=== PATIENT | female | born 1965 | race Caucasian/White ===

== ENCOUNTER 2019-08-03 16:45 | Outpatient (RCR) | payer BC, SELFPAY ==
[2019-07-25 16:57] LABS: INR 1.1
[2019-08-03 17:31] LABS: INR 2.3; Prothrombin Time 24.9 Seconds (11.1-14.7)
== END 2019-10-23 23:59 | disposition home or self-care (01) ==
LOC: ANHLAB 16:45
PROVIDERS: PCP Family Medicine; Visit Provider Internal Medicine Cardiovascular Disease
DX: I05.9 Rheumatic mitral valve disease, unspecified (principal); Z95.2 Presence of prosthetic heart valve
CPT/HCPCS: 36415; 85610

== ENCOUNTER 2020-02-17 15:49 | Outpatient (RCR) | payer BC, SELFPAY ==
[2020-01-04 16:44] LABS: INR 3.3; Prothrombin Time 32.6 Seconds (11.1-14.7)
[2020-02-17 16:26] LABS: INR 3.3; Prothrombin Time 32.7 Seconds (11.1-14.7)
== END 2020-04-03 23:59 | disposition home or self-care (01) ==
LOC: ANHLAB 15:49
PROVIDERS: PCP Family Medicine; Visit Provider Internal Medicine Cardiovascular Disease
DX: I05.9 Rheumatic mitral valve disease, unspecified (principal); Z95.2 Presence of prosthetic heart valve
CPT/HCPCS: 36415; 85610

== ENCOUNTER 2020-07-23 11:45 | Outpatient (RCR) | payer SELFPAY ==
[2020-05-23 09:08] LABS: INR 2.7; Prothrombin Time 27.8 Seconds (11.1-14.7)
[2020-07-23 12:30] LABS: INR 2.6; Prothrombin Time 28.5 Seconds (11.1-14.7)
== END 2020-08-21 23:59 | disposition home or self-care (01) ==
LOC: ANHLAB 11:45
PROVIDERS: PCP Family Medicine; Visit Provider Internal Medicine Cardiovascular Disease
DX: I05.9 Rheumatic mitral valve disease, unspecified (principal); Z95.2 Presence of prosthetic heart valve
CPT/HCPCS: 36415; 85610

== ENCOUNTER 2020-10-18 17:10 | Outpatient (CLI) | payer BC, SELFPAY ==
[2020-10-18 17:33] LABS: Basophils Percent Auto 0.3 % (0.2-1.2); Eosinophils Absolute Auto 0.1 K/mm3 (0-0.3); Eosinophils Percent Auto 2.1 % (0-4.4); Hematocrit 42.5 % (37.0-47.0); Hemoglobin 14.2 g/dL (12.0-15.0); Immature Granulocyte Absolute 0.02 K/mm3 (0.00-0.031); Immature Granulocyte Percent A 0.3 % (0-0.5); Lymphocytes Absolute Auto 1.77 K/mm3 (0.9-3.2); Lymphocytes Percent Auto 28.5 % (18.3-44.2); Mean Corpuscular HGB Conc 33.4 g/dl (32-36); Mean Corpuscular Hemoglobin 32.8 pg (26-34); Mean Corpuscular Volume 98.2 fl (80-100); Mean Platelet Volume 10.6 fl (7.4-10.4); Monocytes Absolute Auto 0.5 K/mm3 (0.1-0.6); Monocytes Percent Auto 7.6 % (2.6-8.5); Neutrophils Absolute Auto 3.8 K/mm3 (1.3-6.7); Neutrophils Percent Auto 61.2 % (45.5-73.1); Platelet Count Result 315 k/mm3 (150-375); Red Blood Count 4.33 M/mm3 (4.2-5.4); Red Cell Distribution Width 14.2 % (11.5-14.5); White Blood Count 6.2 K/mm3 (4.5-10.0)
[2020-10-18 17:45] LABS: Alanine Aminotransferase 41 U/L (4-35); Albumin Level 4.6 g/dL (3.5-5.1); Alkaline Phosphatase 53 U/L (38-126); Anion Gap 7 mmol/L (8-16); Aspartate Amino Transferase 47 U/L (14-36); Bilirubin,Total 1.5 mg/dL (0.2-1.3); Blood Urea Nitrogen 14 mg/dL (7-17); Calcium 9.4 mg/dL (8.4-10.2); Carbon Dioxide 30 mmol/L (22-30); Chloride 101 mmol/L (98-107); Cholesterol 261 mg/dL (0-200); Estimated Glomerular Filt Rate > 60; Glucose 95 mg/dL (65-105); HDL Direct 67 mg/dL; Sodium 138 mmol/L (137-145); Triglycerides 73 mg/dL (<150)
[2020-10-18 17:48] LABS: Hemoglobin A1C 5.3 % (<5.7)
[2020-10-18 17:56] LABS: LDL Cholesterol Direct 136 mg/dL
[2020-10-22 12:35] LABS: Vitamin D 1,25 (OH)2 Total 44 pg/mL (18-72); Vitamin D2 1,25 (OH)2 <8 pg/mL; Vitamin D3 1,25 (OH)2 44 pg/mL
== END 2020-10-18 17:11 | disposition home or self-care (01) ==
LOC: ANHLAB 17:12
PROVIDERS: PCP Family Medicine; Visit Provider Family Medicine
DX: R73.01 Impaired fasting glucose (principal); I10 Essential (primary) hypertension; E78.2 Mixed hyperlipidemia; R53.83 Other fatigue; E55.9 Vitamin D deficiency, unspecified
CPT/HCPCS: 36415; 80053; 80061; 82652; 83036; 84443; 85025

== ENCOUNTER 2020-11-28 15:18 | Outpatient (RCR) | payer BC, SELFPAY ==
[2020-09-10 12:12] LABS: INR 1.8; Prothrombin Time 21.3 Seconds (11.1-14.7)
[2020-09-18 14:50] LABS: INR 2.4; Prothrombin Time 26.4 Seconds (11.1-14.7)
[2020-10-18 17:41] LABS: Prothrombin Time 23.5 Seconds (11.1-14.7)
[2020-11-28 15:42] LABS: INR 2.5; Prothrombin Time 27.9 Seconds (11.1-14.7)
== END 2020-12-09 23:59 | disposition home or self-care (01) ==
LOC: ANHLAB 15:18
PROVIDERS: PCP Family Medicine; Visit Provider Internal Medicine Cardiovascular Disease
DX: Z51.81 Encounter for therapeutic drug level monitoring (principal); Z95.2 Presence of prosthetic heart valve; Z79.01 Long term (current) use of anticoagulants
CPT/HCPCS: 36415; 85610

== ENCOUNTER → 2020-11-30 17:19 | Outpatient (CLI) | payer BC, SELFPAY ==
--- NOTE | ~2020-11-30 | MM_ITS ---
EXAMINATION: MM screening flavia BI w betty HISTORY: Screening mammogram TECHNIQUE: Craniocaudal and mediolateral oblique 3-D tomosynthesis images were obtained and synthetic 2-D images were generated. CAD analysis was submitted and interpreted. COMPARISON: No prior mammogram is available for comparison at this institution. BREAST PARENCHYMAL COMPOSITION: The breasts are heterogeneously dense, which may obscure small masses . FINDINGS: Scattered bilateral benign calcifications are noted. Several 3 mm up to 13 mm masses are noted in the right breast, the largest having halo sign suggestin g benign process. Diagnostic right mammogram and right breast ultrasound examination are recommended. Circumscribed approximately 4 mm up to 11 with a lobulated masses are suggested on the left as well. Diagnostic left mammogram and left breast ultrasound examination are recommended.. IMPRESSION: 1. Bilateral breast masses 2. Bilateral diagnostic mammography and bilateral breast ultrasound examination are recommended. BI-RADS Category 0: Incomplete: Needs additional imaging evaluation. Reviewed, dictated and finalized at location A.
== END ==
PROVIDERS: PCP Family Medicine; Visit Provider Family Medicine
DX: Z12.31 Encounter for screening mammogram for malignant neoplasm of breast (principal); R92.8 Other abnormal and inconclusive findings on diagnostic imaging of breast
CPT/HCPCS: 77063; 77067

== ENCOUNTER → 2020-12-19 10:51 | Outpatient (CLI) | payer BC, SELFPAY ==
--- NOTE | ~2020-12-19 | CT_ITS ---
EXAMINATION: CT diagnostic chest wo con DATE: 12/19/2020 11:29 INDICATION: solitary pulmonary nodule TECHNIQUE: Computed tomography (CT) of the chest was performed without intravenous contrast. Addition al 3D reconstructions utilizing coronal maximum intensity projection (MIP) were performed. Automated exposure control and iterative reconstruction technique were employed. The dose-length product was 14 3.88 mGy-cm. COMPARISON: 05/13/2019 FINDINGS: Again seen are several scattered 4 mm or smaller bilateral pulmonary nodules, a couple of which are n ew since the prior study although a couple of the nodule on the prior study have since resolved. Unch anged curvilinear bands of peripheral atelectasis/scarring with architectural distortion in the lingu la, right middle and bilateral lower lung zones. No pneumonia, pulmonary edema or pleural effusion. H eart size is normal. Postoperative change of prior median sternotomy and mitral valve repair. No bernadette cardial effusion. Thoracic aorta is normal in caliber with no dissection. No pathologically enlarged abdominal or pelvic lymphadenopathy. Small fat-containing infra xiphoid ventral hernia. Visualized up per abdomen is unremarkable. Mild thoracic spondylosis. IMPRESSION: 1. A few 4 mm or smaller scattered bilateral pulmonary nodules couple of which appear new, likely seq uela of old granulomatous disease. If the patient is low risk for lung cancer, no follow-up is needed . If the patient is high risk (i.e., history of smoking or asbestos or significant radiation exposure ), optional follow-up chest CT could be considered at 12 months. Reviewed, dictated and finalized at location A. IMPRESSION: 1. A few 4 mm or smaller scattered bilateral pulmonary nodules couple of which appear new, likely sequela of old granulomatous disease. If the patient is low risk for lung cancer, no follow-up is needed. If the patient is high risk (i.e. , history of smoking or asbestos or significant radiation exposure), optional f ollow-up chest CT could be considered at 12 months.
== END ==
PROVIDERS: PCP Family Medicine; Visit Provider Physician Assistant
DX: R91.8 Other nonspecific abnormal finding of lung field (principal)
CPT/HCPCS: 71250

== ENCOUNTER 2021-01-10 09:32 | Outpatient (CLI) | payer BC, SELFPAY ==
--- NOTE | ~2021-01-10 | MMUS_ITS ---
EXAMINATION: MM diagnostic flavia BI w betty, US breast BI limited HISTORY: Bilateral breast masses on screening mammogram TECHNIQUE: Additional 3-D tomosynthesis images of the breasts were performed and synthetic 2-D images were generated. CAD analysis was submitted and interpreted. High resolution limited bilateral breast ultrasound was performed. COMPARISON: 11/30/2020, 11/22/2015, 06/19/2011 FINDINGS: MAMMOGRAPHIC FINDINGS: Left breast: There is a 12 mm low-density mass in the middle third of the outer breast at the 3:00 lo cation 5 cm from the nipple. Right breast: There is a 10 mm obscured low density mass in the anterior third of the slightly outer breast at the 9:00 location 2 cm from the nipple. There is a 9 mm oval, obscured, equal density mass at the 9:00 location in the middle third of the breast 5.5 cm from the nipple with punctate internal calcification. ULTRASOUND: Left breast: There is a 10 mm x 7 mm oval, circumscribed, parallel, hypoechoic mass with posterior ac oustic enhancement and no internal vascularity projecting at the 12:00 location near the nipple. Smal ler masses with similar sonographic features are present at the 1:00 location 4 cm from the nipple, 3 :00 location 5 cm from the nipple, and the 12:00 location 5 cm from the nipple. Right breast: There is an 11 mm cyst at the 8:00 location 2 cm from the nipple. An 8 mm x 5 mm oval, circumscribed, parallel, hypoechoic mass with possible internal septation, no posterior features, and no internal vascularity is present at the 9:00 location 7 cm from the nipple, likely a cluster of mi crocysts. There is a 10 mm x 5 mm mm oval, parallel, hypoechoic mass with indistinct margins, interna l calcification, no posterior features, and no internal vascularity at the 9:00 location 4 cm from th e nipple. IMPRESSION: 1. Indeterminate mass at the 9:00 location 4 cm from the nipple. Ultrasound-guided biopsy is recommen ded. 2. Additional probably benign bilateral masses at the 9:00 location 7 cm from the nipple in the right breast and the 12:00 location of the left breast for which six-month follow-up diagnostic mammogram and ultrasound are recommended. BI-RADS category 4, suspicious findings. Reviewed, dictated and finalized at location A. IMPRESSION: 1. Indeterminate mass at the 9:00 location 4 cm from the nipple. Ultrasound-yolette ded biopsy is recommended. 2. Additional probably benign bilateral masses at the 9:00 location 7 cm from t he nipple in the right breast and the 12:00 location of the left breast for whi ch six-month follow-up diagnostic mammogram and ultrasound are recommended. BI-RADS category 4, suspicious findings.
== END 2021-01-10 09:33 ==
LOC: MICIMG 09:32
PROVIDERS: PCP Family Medicine; Visit Provider Family Medicine
DX: R92.8 Other abnormal and inconclusive findings on diagnostic imaging of breast (principal)
CPT/HCPCS: 76642; 77062; 77066; G0279

== ENCOUNTER 2021-01-30 09:35 | Outpatient (CLI) | payer BC, SELFPAY ==
--- NOTE | ~2021-01-30 | MMUS_ITS ---
US breast biopsy RT w image, MM post biopsy invasive RT EXAMINATION: US GUIDED NEEDLE BIOPSY WITH VAC UUM ASSISTANCE DATE: 01/30/2021 10:47 CDT INDICATION: Right breast mass seen on prior examination. Ultrasound-guided core biopsy is requested to evaluate for malignancy. TECHNIQUE AND FINDINGS: The risks and potential benefits of the procedure were discussed with the patient, and written inform ed consent was obtained. After sterile preparation of the right breast, 1% lidocaine was utilized fo r local anesthesia. 1% lidocaine with epinephrine was used for deep anesthesia. A 10G vacuum-assisted biopsy gun needle was advanced through to the outer edge of the region of inter est from a superior approach utilizing sonographic guidance. A total of 4 tissue core samples were o btained through the lesion at the 9:00 position, 4 cm from the nipple. An Inrad tissue marker clip w as then placed at the biopsy site. Hemostasis was achieved. The patient tolerated procedure well and there was no evidence of immediate complication. The patien t was given verbal instructions partly is from the department. Right breast mammograms to document t issue marker clip placement. The tissue samples were submitted to surgical pathology for histologic a nalysis. IMPRESSION: 1. Successful ultrasound-guided vacuum-assisted biopsy of right breast mass with tissue marker place ment. Please refer to pathology report for histologic analysis. Reviewed, dictated and finalized at location A. IMPRESSION: 1. Successful ultrasound-guided vacuum-assisted biopsy of right breast mass wi th tissue marker placement. Please refer to pathology report for histologic ramonita lysis.
== END 2021-01-30 09:36 | disposition home or self-care (01) ==
PROVIDERS: PCP Family Medicine; Visit Provider Physician Assistant
DX: N63.0 Unspecified lump in unspecified breast (principal); R92.8 Other abnormal and inconclusive findings on diagnostic imaging of breast; N60.11 Diffuse cystic mastopathy of right breast
CPT/HCPCS: 19083; 88305; A4648

== ENCOUNTER 2021-02-14 16:19 | Outpatient (RCR) | payer BC, SELFPAY ==
[2021-01-16 15:32] LABS: Alanine Aminotransferase 30 U/L (4-35); Aspartate Amino Transferase 38 U/L (14-36)
[2021-01-22 14:32] LABS: INR 2.3; Prothrombin Time 26.2 Seconds (11.1-14.7)
[2021-01-29 17:14] LABS: INR 1.8; Prothrombin Time 21.1 Seconds (11.1-14.7)
[2021-02-06 17:21] LABS: Prothrombin Time 39.3 Seconds (11.1-14.7)
[2021-02-14 16:54] LABS: INR 3.1; Prothrombin Time 32.2 Seconds (11.1-14.7)
== END 2021-04-16 23:59 | disposition home or self-care (01) ==
LOC: ANHLAB 16:19
PROVIDERS: PCP Family Medicine; Referring Provider Physician Assistant; Visit Provider Internal Medicine Cardiovascular Disease
DX: Z51.81 Encounter for therapeutic drug level monitoring (principal); Z95.2 Presence of prosthetic heart valve; Z79.01 Long term (current) use of anticoagulants
CPT/HCPCS: 36415; 84450; 84460; 85610

== ENCOUNTER 2021-03-11 13:06 | Inpatient (IN) | payer BC, SELFPAY ==
[2021-03-11] VITALS (38 sets, daily range): BP systolic 102–141; BP diastolic 63–89; PULSE 62–84; RESP 12–18; TEMP 36.2–36.6; O2SAT 94–100; BMI 34.0
--- NOTE | ~2021-03-11 | XR_ITS ---
EXAMINATION: XR chest 2V DATE: 03/11/2021 13:33 INDICATION: Sternal chest pain TECHNIQUE: frontal and lateral views of the chest were obtained. COMPARISON: Chest radiograph dated 09/03/2017 FINDINGS: The lungs remain clear with no focal airspace opacities, pulmonary edema, pleural effusion or pneumot horax. The cardiomediastinal silhouette is normal. Median sternotomy wires and prosthetic mitral valv e. IMPRESSION: 1. No acute cardiopulmonary disease. Reviewed, dictated and finalized at location A.
--- NOTE | 2021-03-11 13:08 | ECG_ITS ---
Measurements Intervals [place] Rate: 79 P: 74 FL: 160 QRS: 72 QRSD: 95 T: 62 QT: 395 QTc: 455 Interpretive Statements SINUS RHYTHM INCOMPLETE RIGHT BUNDLE BRANCH BLOCK BORDERLINE R WAVE PROGRESSION, ANTERIOR LEADS PEAKED T WAVES- CONSIDER HYPERKALEMIA OR ISCHEMIA ABNORMAL ECG Electronically Signed On 03-11-2021 13:18:07 CDT by Rory Mehta D.O.
--- NOTE | 2021-03-11 13:25 | PC.NURSE ---
Pt to xray.
[2021-03-11 13:32] LABS: Basophils Percent Auto 0.5 % (0.2-1.2); Eosinophils Absolute Auto 0.1 K/mm3 (0-0.3); Eosinophils Percent Auto 1.3 % (0-4.4); Hematocrit 40.1 % (37.0-47.0); Hemoglobin 13.6 g/dL (12.0-15.0); Immature Granulocyte Absolute 0.01 K/mm3 (0.00-0.031); Immature Granulocyte Percent A 0.2 % (0-0.5); Lymphocytes Absolute Auto 2.16 K/mm3 (0.9-3.2); Lymphocytes Percent Auto 34.7 % (18.3-44.2); Mean Corpuscular HGB Conc 33.9 g/dl (32-36); Mean Corpuscular Hemoglobin 32.7 pg (26-34); Mean Corpuscular Volume 96.4 fl (80-100); Monocytes Absolute Auto 0.5 K/mm3 (0.1-0.6); Monocytes Percent Auto 7.2 % (2.6-8.5); Neutrophils Absolute Auto 3.5 K/mm3 (1.3-6.7); Neutrophils Percent Auto 56.1 % (45.5-73.1); Platelet Count Result 303 k/mm3 (150-375); Red Blood Count 4.16 M/mm3 (4.2-5.4); Red Cell Distribution Width 13.9 % (11.5-14.5); White Blood Count 6.2 K/mm3 (4.5-10.0)
--- NOTE | 2021-03-11 13:34 | PC.NURSE ---
Dr. Solares at bedside for pt assessment.
[2021-03-11 13:48] LABS: Anion Gap 8 mmol/L (8-16); Blood Urea Nitrogen 14 mg/dL (7-17); Calcium 9.9 mg/dL (8.4-10.2); Carbon Dioxide 28 mmol/L (22-30); Chloride 100 mmol/L (98-107); Estimated CRCL calculation 73 ml/min; Estimated Glomerular Filt Rate > 60; Glucose 116 mg/dL (65-105); Potassium 3.6 mmol/L (3.4-5.0); Sodium 136 mmol/L (137-145)
[2021-03-11 14:00] LABS: Partial Thromboplastin Time 29.2 SECONDS (22.3-36.8); Troponin I 0.015 ng/mL (0.000-0.034)
--- NOTE | 2021-03-11 14:18 | ED.CHESTPAIN ---
HPI - Chest Pain General Chief Complaint: Chest Pain Stated Complaint: CP Time Seen by Provider: 03/11/21 13:32 History of Present Illness HPI narrative: Patient is a 55-year-old female with history of mitral valve replacement who sees Dr. Wyman that presents to the ER with chest pain. Reports chest pain was central and aching and radiated to her left shoulder and then up into her left neck. Persistent but not nearly as intense at this time. Patient reports that she was at work and carrying some boards when she had sudden onset pain. No fevers or chills or sweats. No productive cough. Denies history of coronary disease. Received nitro and aspirin by EMS without significant improvement in pain. Reports pain did go down on its own. Is now mainly located behind her left breast. Related Data Home Medications Medication Instructions Recorded Confirmed warfarin 1 mg tablet 1 mg PO .COMPLEX 10/18/20 01/17/21 Allergies Allergy/AdvReac Type Severity Reaction Status Date / Time No Known Allergies Allergy Unverified 01/17/21 16:09 Review of Systems Review of Systems: All systems reviewed & are unremarkable except as noted in HPI and below Constitutional: Constitutional: Denies chills Cardiovascular: Cardiovascular: Reports chest pain, Denies syncope, Denies rapid heart rate and Reports radiating jaw, neck or arm pain Respiratory: Respiratory: Denies cough and Denies dyspnea Gastrointestinal: Gastrointestinal: Denies abdominal pain, Denies diarrhea, Denies nausea and Denies vomiting Genitourinary: Genitourinary: Denies nocturia, Denies dysuria and Denies flank pain PMFSH Past Medical History Medical History Benign essential HTN 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 Lung nodule Lung nodule seen on imaging study Mitral valve regurgitation Tobacco abuse Surgical History Surgical History Bioprosthetic mitral valve replacement, current hospitalization Hx of hysterectomy Family History Family History Father Hypertension Family history of malignant neoplasm, Onset Age: 75 Social History Social History (Updated 01/17/21 @ 16:10 by Sandy Bueno) Social History: Smoking packs per day: 1 Smoking cigarettes per day: 20.0 Years smoked: 42 Smoking pack-years: 42.00 Smoking status: Current every day smoker Tobacco type: cigarettes Second hand tobacco smoke exposure: Yes Alcohol intake: unknown Substance use: never Substance use type: does not use Gender identity (if verbalized by the patient): Female Spiritual care concerns: No Exam Narrative: Exam Narrative: GENERAL: Well-appearing, well-nourished, and in no acute distress. HEAD: Normocephalic, atraumatic. ENT: Mucous membranes moist. CHEST: Clear to auscultation. No respiratory distress. No reproducible chest wall pain. HEART: Regular rate and rhythm. Normal peripheral pulses. ABDOMEN: Soft, nontender, nondistended. EXTREMITIES: Normal range of motion. No edema. SKIN: Warm, dry, no rash. NEURO: Alert and oriented x3. PSYCH: Normal mood and affect. Course Course Emergency Course: Discussed case with Bessy with the heart care [facility]. Admit to their service under Dr. Clark. Patient will receive Lovenox for subtherapeutic INR. Will trend troponins. Vital Signs Vital signs: Vital Signs Temperature 97.4 F L 03/11/21 13:13 Pulse Rate 84 03/11/21 13:13 Respiratory Rate 14 03/11/21 13:13 Blood Pressure 131/79 03/11/21 13:13 Pulse Oximetry 95 03/11/21 13:13 Temperature 97.4 F L 03/11/21 13:13 Pulse Rate 73 03/11/21 16:32 Respiratory Rate 18 03/11/21 16:31 Blood Pressure 130/89 03/11/21 16:31 Pulse Oximetry 97 03/11/21 16:32 MDM - Chest Pain Lab Data Result diagrams: 03/11/21 13:23
[2021-03-11] MEDS: MORPHINE SULFATE (*CRX) 4 MG/ML INJ IV PUSH (14:25)
[2021-03-11 14:46] LABS: INR 1.4; Prothrombin Time 16.7 Seconds (11.1-14.7)
[2021-03-11] MEDS: ENOXAPARIN 100 MG/ML SYRINGE 87 MG SUB-Q (15:40)
--- NOTE | 2021-03-11 17:21 | ADMGEN ---
This patient, Blank Mckeon, was admitted to IMU Room 213-01. Patient/family oriented to hospital policies and general routines including ID bracelet, bed and alarms, visiting hours, pain management, procedures, bathroom and other care routines, personal items, smoking policy, room service/diet, and visiting hours. Information on how to activate the Rapid Response Team has been discussed. Patient/Family are encouraged to report perceived risks to care and to ask questions if they do not understand what they are told or what they should do.
[2021-03-11 17:25] LABS: Troponin I 0.736 ng/mL (0.000-0.034)
[2021-03-11] MEDS: ACETAMINOPHEN 325 MG TABLET 650 MG PO (18:34)
[2021-03-11] MEDS: HYDROcodone/acetaminophen (*CRX) 5-325 MG TABLET 1 TAB PO (22:13)
[2021-03-11] MEDS: NITROGLYCERIN SL 0.4 MG TABLET SUBLINGUAL (22:13)
[2021-03-12] VITALS (22 sets, daily range): BP systolic 105–137; BP diastolic 50–85; PULSE 61–97; RESP 12–97; TEMP 36.3–36.9; O2SAT 20–100
--- NOTE | 2021-03-12 09:14 | PM.CNCAR ---
History of Present Illness History of Present Illness Consult date/time: 03/12/21 09:14 DATE OF CONSULT:03/12/2021 REASON FOR CONSULT: REQUESTING PHYSICIAN: CHIEF COMPLAINT: HPI: Reason For Visit: Chest pain/subtherapeutic INR PMFSH Past Medical History Medical History Benign essential HTN 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 longterm current use of anticoagulant Lung nodule Lung nodule seen on imaging study Mitral valve regurgitation Tobacco abuse Surgical History Surgical History Bioprosthetic mitral valve replacement, current hospitalization Hx of hysterectomy Family History Family History Father Hypertension Family history of malignant neoplasm, Onset Age: 75 Social History Social History (Updated 01/17/21 @ 16:10 by Sandy Bueno) Social History: Smoking packs per day: 1 Smoking cigarettes per day: 20.0 Years smoked: 42 Smoking pack-years: 42.00 Smoking status: Current every day smoker Tobacco type: cigarettes Second hand tobacco smoke exposure: Yes Alcohol intake: unknown Substance use: never Substance use type: does not use Gender identity (if verbalized by the patient): Female Spiritual care concerns: No Meds Home Medications and Allergies Home Medications Medication Instructions Recorded Confirmed Type warfarin 1 mg tablet 1 mg PO .COMPLEX 10/18/20 03/11/21 History warfarin 6 mg tablet 12 mg PO .qod #30 tablet 10/18/20 03/11/21 Rx Allergies Allergy/AdvReac Type Severity Reaction Status Date / Time No Known Allergies Allergy Unverified 01/17/21 16:09 Vital Signs Vital Signs - 24 hr 03/11/21 13:13 03/11/21 13:18 03/11/21 13:19 Temperature 36.3 C L Pulse Rate 84 78 Respiratory Rate 14 Blood Pressure 131/79 Pulse Oximetry 95 97 03/11/21 13:22 03/11/21 13:35 03/11/21 13:45 Temperature Pulse Rate 78 79 81 Respiratory Rate 13 13 12 Blood Pressure Pulse Oximetry 98 98 95 03/11/21 14:00 03/11/21 14:12 03/11/21 14:15 Temperature Pulse Rate 69 70 70 Respiratory Rate 16 18 Blood Pressure 126/78 Pulse Oximetry 97 97 96 03/11/21 14:17 03/11/21 14:30 03/11/21 14:32 Temperature Pulse Rate 70 74 73 Respiratory Rate 15 16 Blood Pressure 132/76 131/74 Pulse Oximetry 97 98 94 03/11/21 14:45 03/11/21 14:47 03/11/21 15:00 Temperature Pulse Rate 70 69 68 Respiratory Rate 14 Blood Pressure 141/84 H Pulse Oximetry 98 97 96 03/11/21 15:02 03/11/21 15:03 03/11/21 15:15 Temperature Pulse Rate 68 68 71 Respiratory Rate 17 12 15 Blood Pressure 134/77 Pulse Oximetry 94 96 96 03/11/21 15:17 03/11/21 15:30 03/11/21 15:31 Temperature Pulse Rate 71 65 68 Respiratory Rate 17 16 17 Blood Pressure 122/75 134/79 Pulse Oximetry 96 96 96 03/11/21 15:45 03/11/21 15:46 03/11/21 15:47 Temperature Pulse Rate 69 65 65 Respiratory Rate 12 18 Blood Pressure 138/77 Pulse Oximetry 98 98 97 03/11/21 16:00 03/11/21 16:01 03/11/21 16:02 Temperature Pulse Rate 64 63 66 Respiratory Rate 16 16 14 Blood Pressure 128/71 Pulse Oximetry 95 96 95 03/11/21 16:15 03/11/21 16:16 03/11/21 16:30 Temperature Pulse Rate 64 67 66 Respiratory Rate 12 13 Blood Pressure 138/74 Pulse Oximetry 98 98 98 03/11/21 16:31 03/11/21 16:32 03/11/21 17:50 Temperature 36.6 C Pulse Rate 64 73 73 Respiratory Rate 18 15 Blood Pressure 130/89 102/63 Pulse Oximetry 97 97 95 03/11/21 18:00 03/11/21 20:00 03/11/21 22:00 Temperature 36.2 C L Pulse Rate 68 71 68 Respiratory Rate 18 Blood Pressure 121/69 Pulse Oximetry 97 03/11/21 23:29 03/11/21 23:30 03/12/21 00:00 Temperature 36.3 C L 36.3 C L Pulse Rate 62 62 65 Respiratory Rate 18 18 18 Blood Pressure 120/65 120/65 Pulse Oximetry 100 100 100 03/12/21 02
--- NOTE | 2021-03-12 09:16 | PM.IMHP ---
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 Patient presented to [facility] ER on 03/11/2021 with complaints of chest pain when she was at work. she described her chest pain as sharp sensation in the substernal area with radiation to the left arm and jaw the last for several hours. She states her chest pain improved with nitroglycerin, and had few episodes of recurrent chest discomfort since admission to the hospital. She denied associated symptoms including shortness of breath, palpitation, dizziness or syncope. She reports being compliant with warfarin, and states that she has missed only 1 dose in last several days. EKG on my personal evaluation shows sinus rhythm, incomplete right bundle-branch block, T abnormality in the anterolateral leads. Troponins are elevated with current peak troponin level 2.85. INR at presentation was subtherapeutic at 1.4. Chest x-ray unremarkable. Chief Complaint: Chest pain Review of Systems Review of Systems: Narrative: General: Negative for fever, chills, fatigue Psychological: Negative for anxiety, depression Ophthalmic: negative for loss of vision ENT: Negative for epistaxis, headaches Allergy and immunology: Negative for hives, nasal congestion Hematologic and lymphatic: Negative for overt bleeding problems Endocrine: Negative for hot flashes, palpitations Respiratory: Negative for cough, hemoptysis Cardiovascular: Positive for chest pain with radiation to left arm and jaw Gastrointestinal: Negative for abdominal pain, nausea, vomiting, hematochezia Musculoskeletal: Negative for myalgia, joint pains Neurological: Negative for weakness Dermatological: Negative for rash, skin discoloration PMF Past Medical History Medical History Benign essential HTN 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 Lung nodule Lung nodule seen on imaging study Mitral valve regurgitation Tobacco abuse Surgical History Surgical History Bioprosthetic mitral valve replacement, current hospitalization Hx of hysterectomy Family History Family History Father Hypertension Family history of malignant neoplasm, Onset Age: 75 Social History Social History Social History: Smoking packs per day: 1 Smoking cigarettes per day: 20.0 Years smoked: 42 Smoking pack-years: 42.00 Smoking status: Current every day smoker Tobacco type: cigarettes Second hand tobacco smoke exposure: Yes Alcohol intake: unknown Substance use: never Substance use type: does not use Gender identity (if verbalized by the patient): Female Spiritual care concerns: No Meds Home Medications and Allergies Home Medications Medication Instructions Recorded Confirmed Type warfarin 1 mg tablet 1 mg PO .COMPLEX 10/18/20 03/11/21 History warfarin 6 mg tablet 12 mg PO .qod #30 tablet 10/18/20 03/11/21 Rx Allergies Allergy/AdvReac Type Severity Reaction Status Date / Time No Known Allergies Allergy Unverified 01/17/21 16:09 Vital Signs Vital Signs - 24 hr 03/11/21 13:13 03/11/21 13:18 03/11/21 13:19 Temperature 36.3 C L Pulse Rate 84 78 Respiratory Rate 14 Blood Pressure 131/79 Pulse Oximetry 95 97 03/11/21 13:22 03/11/21 13:35 03/11/21 13:45 Temperature Pulse Rate 78 79 81 Respiratory Rate 13 13 12 Blood Pressure Pulse Oximetry 98 98 95 03/11/21 14:00 03/11/21 14:12 03/11/21 14:15 Temperature Pulse Rate 69 70 70
--- NOTE | 2021-03-12 09:38 | WPDMODSED ---
Moderate Sedation Note-Pt Data Patient Data Allergies Allergy/AdvReac Type Severity Reaction Status Date / Time No Known Allergies Allergy Unverified 01/17/21 16:09 Home Medications Medication Instructions Recorded Confirmed Type warfarin 1 mg tablet 1 mg PO .COMPLEX 10/18/20 03/11/21 History warfarin 6 mg tablet 12 mg PO .qod #30 tablet 10/18/20 03/11/21 Rx Current Medications: Active Medications Acetaminophen (Acetaminophen 325 Mg Tablet) 650 mg PO Q4H PRN PRN Reason: Mild Pain (1-3) or Fever Last Admin: 03/11/21 18:34 Dose: 650 mg Documented by: Hydrocodone Bitart/Acetaminophen (Hydrocodone/Acetaminophen (*Crx) 5-325 Mg Tablet) 1 tab PO Q4H PRN PRN Reason: Pain Rated 4-6 Last Admin: 03/11/21 22:13 Dose: 1 tab Documented by: Morphine Sulfate (Morphine Sulfate (*Crx) 4 Mg/Ml Inj) 4 mg IV PUSH Q2H PRN PRN Reason: Pain Rated 7-10 Nitroglycerin (Nitroglycerin Sl 0.4 Mg Tablet) 0.4 mg SUBLINGUAL Q5MIN PRN PRN Reason: Chest Pain Last Admin: 03/11/21 22:13 Dose: 0.4 mg Documented by: Nitroglycerin (Nitroglycerin Ointment 1 Inch Dose) 0.5 inch TRANSDERM Q6HR DIANA Last Admin: 03/12/21 06:11 Dose: Not Given Documented by: Ondansetron HCl (Ondansetron Inj 4 Mg/2 Ml Vial) 4 mg IV PUSH Q4H PRN PRN Reason: Nausea Sedation/Anesthesia: No previous sedation/anesthesia problems (including family history). [facility] Past Medical History Medical History Benign essential HTN 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 halfway current use of anticoagulant Lung nodule Lung nodule seen on imaging study Mitral valve regurgitation Tobacco abuse Surgical History Surgical History Bioprosthetic mitral valve replacement, current hospitalization Hx of hysterectomy Family History Family History Father Hypertension Family history of malignant neoplasm, Onset Age: 75 Social History Social History Social History: Smoking packs per day: 1 Smoking cigarettes per day: 20.0 Years smoked: 42 Smoking pack-years: 42.00 Smoking status: Current every day smoker Tobacco type: cigarettes Second hand tobacco smoke exposure: Yes Alcohol intake: unknown Substance use: never Substance use type: does not use Gender identity (if verbalized by the patient): Female Spiritual care concerns: No Mod Sed Physical Exam Physical Exam Pre Procedural Exam: Normal: Airway Hours since solid foods: 10 Hours since liquid intake: 10 Mallampati Classification: class 1 Internal Medicine - PN: Obj Da Vital Signs Vital Signs: Vital Signs - 24 hr 03/11/21 13:13 03/11/21 13:18 03/11/21 13:19 Temperature 36.3 C L Pulse Rate 84 78 Respiratory Rate 14 Blood Pressure 131/79 Pulse Oximetry 95 97 03/11/21 13:22 03/11/21 13:35 03/11/21 13:45 Temperature Pulse Rate 78 79 81 Respiratory Rate 13 13 12 Blood Pressure Pulse Oximetry 98 98 95 03/11/21 14:00 03/11/21 14:12 03/11/21 14:15 Temperature Pulse Rate 69 70 70 Respiratory Rate 16 18 Blood Pressure 126/78 Pulse Oximetry 97 97 96 03/11/21 14:17 03/11/21 14:30 03/11/21 14:32 Temperature Pulse Rate 70 74 73 Respiratory Rate 15 16 Blood Pressure 132/76 131/74 Pulse Oximetry 97 98 94 03/11/21 14:45 03/11/21 14:47 03/11/21 15:00 Temperature Pulse Rate 70 69 68 Respiratory Rate 14 Blood Pressure 141/84 H Pulse Oximetry 98 97 96 03/11/21 15:02 03/11/21 15:03 03/11/21 15:15 Temperature Pulse Rate 68 68 71 Respiratory Rate 17 12 15 Blood Pressure 134/77 Pulse Oximetry 94 96 96 03/11/21 15:17 03/11/21 15:30 03/11/21 15:31 Temperature Pulse Rate 71 65 68 Respiratory Rate 17 16 17 Blood Pressure 122/75 134/79 Pulse Oximetry 96 96 96 03/11/21 15:45 03/11/21 15:46 03/11/21 15:47 Temp
[2021-03-12] MEDS: NICOTINE (*PBKC) 7 MG PATCH 1 PATCH TRANSDERM (10:42)
--- NOTE | 2021-03-12 11:12 | PC.NURSE ---
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
--- NOTE | 2021-03-12 12:19 | WPDCARDPROC ---
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 Patient presents with anginal chest pain, EKG shows tall T-waves in the anterolateral leads, and troponins were elevated. Patient's INR was subtherapeutic at presentation, and possibility of cardioembolic event to the coronary arteries needed be ruled out. Patient's remote cardiac catheterization performed on 02/18/2006 prior to mitral valve replacement surgery reported trivial coronary artery plaquing. Patient has been is heavy smoker over the years, and possibility of in situ plaque progression remains a possibility as well. After discussing benefits and risks and alternatives, patient is willing to proceed with coronary angiogram to evaluate coronary anatomy. Benefits and risks of the procedure were discussed with the patient in depth, and informed consent was obtained prior to the procedure. Risks of the procedure include but are not limited to vascular complications including groin hematoma, retroperitoneal bleed, vessel perforation; periprocedural MD, cardiac arrhythmias, stroke, contrast induced nephropathy, and . After discussing all the benefits, risks and alternatives, patient was willing to proceed with the procedure. PROCEDURES PERFORMED: 1. Left heart catheterization- Selective left and right coronary angiogram; left ventriculogram and hemodynamic assessment 2. Percutaneous coronary intervention- balloon angioplasty of totally occluded distal LAD with yarsani of flow 3. Assessment of mechanical mitral valve mobility on fluoroscopy 4. Selective right common femoral angiogram and deployment of Angio-Seal hemostatic device 5. Moderate sedation-CPT code 59405 MODERATE SEDATION: Midazolam 2 mg; fentanyl 50 mcg. Start time 1130 , Stop time 1209 ; Total [id number]-[id number] time 39 minutes; Cristina Soriano RN was trained observer for moderate sedation. ACCESS SITE: Right common femoral artery PROCEDURE NOTE: After obtaining informed consent, patient was brought to catheterization lab and prepped and draped in a usual sterile manner. After local anesthesia with lidocaine, right common femoral artery access was taken with micropuncture needle followed by insertion of a 5 Serbian sheath. Selective left and right coronary angiogram was performed using 5 Serbian JL4 and JR4 catheters respectively. Orthogonal views were taken. Next, a 5 Serbian pigtail catheter was advanced in the LV cavity and was flushed with normal saline. LV pressure measurement was performed. After this, left ventriculogram was performed. The catheter was flushed again, and gradient across the aortic valve was measured on the pullback of the catheter. Selective right common femoral angiogram was performed after PCI followed by successful deployment of Angio-Seal vascular closure device. Patient tolerated procedure well without any immediate procedure related complications. FINDINGS: LEFT MAIN CORONARY: the left main coronary artery is a medium caliber, short vessel, no significant focal stenosis. The vessel bifurcates into LAD and left circumflex branches. LEFT ANTERIOR DESCENDING ARTERY: The LAD is a medium caliber vessel, tortuous. The vessel is totally occluded in the distal segment secondary to a thrombus, likely embolic. SANJU 0 flow is seen in the distal LAD. After intervention, small residual, non flow-limiting thrombus is seen. The distal most part of the LAD is smaller caliber vessel and reaches the LV apex. The kalyani
--- NOTE | 2021-03-12 13:42 | PC.NURSE ---
Patient returned from medical lab specialist.
[2021-03-12] MEDS: SODIUM CHLORIDE 0.9% IV 1,000 ML 125 ML IV CONT (13:46)
[2021-03-12] MEDS: HEPARIN SOD/D5W 100 UNITS/ML 25,000 UNITS/250 ML BAG 12 UNITS IV CONT (13:48)
[2021-03-12 15:03] LABS: Basophils Percent Auto 0.5 % (0.2-1.2); Eosinophils Absolute Auto 0.1 K/mm3 (0-0.3); Eosinophils Percent Auto 1.7 % (0-4.4); Hematocrit 42.1 % (37.0-47.0); Hemoglobin 14.2 g/dL (12.0-15.0); Immature Granulocyte Absolute 0.02 K/mm3 (0.00-0.031); Immature Granulocyte Percent A 0.3 % (0-0.5); Lymphocytes Absolute Auto 1.51 K/mm3 (0.9-3.2); Lymphocytes Percent Auto 23.4 % (18.3-44.2); Mean Corpuscular HGB Conc 33.7 g/dl (32-36); Mean Corpuscular Hemoglobin 32.9 pg (26-34); Mean Corpuscular Volume 97.5 fl (80-100); Mean Platelet Volume 11.1 fl (7.4-10.4); Monocytes Absolute Auto 0.6 K/mm3 (0.1-0.6); Monocytes Percent Auto 8.8 % (2.6-8.5); Neutrophils Absolute Auto 4.2 K/mm3 (1.3-6.7); Neutrophils Percent Auto 65.3 % (45.5-73.1); Platelet Count Result 289 k/mm3 (150-375); Red Blood Count 4.32 M/mm3 (4.2-5.4); Red Cell Distribution Width 13.9 % (11.5-14.5); White Blood Count 6.5 K/mm3 (4.5-10.0)
[2021-03-12 15:14] LABS: Prothrombin Time 22.3 Seconds (11.1-14.7)
[2021-03-12 15:17] LABS: Partial Thromboplastin Time 112.6 SECONDS (22.3-36.8)
[2021-03-12] MEDS: WARFARIN (*PBKC) 10 MG TABLET PO (16:50)
[2021-03-12 21:09] LABS: Partial Thromboplastin Time 101.5 SECONDS (22.3-36.8)
--- NOTE | 2021-03-12 21:09 | PC.NURSE ---
ptt still pending, waiting results.
[2021-03-13] VITALS (20 sets, daily range): BP systolic 94–147; BP diastolic 45–87; PULSE 65–88; RESP 11–20; TEMP 36.6–37; O2SAT 93–100
[2021-03-13 03:11] LABS: Basophils Percent Auto 0.3 % (0.2-1.2); Eosinophils Absolute Auto 0.2 K/mm3 (0-0.3); Eosinophils Percent Auto 2.5 % (0-4.4); Hematocrit 44.1 % (37.0-47.0); Hemoglobin 14.4 g/dL (12.0-15.0); Immature Granulocyte Absolute 0.01 K/mm3 (0.00-0.031); Immature Granulocyte Percent A 0.2 % (0-0.5); Lymphocytes Absolute Auto 1.63 K/mm3 (0.9-3.2); Lymphocytes Percent Auto 27.5 % (18.3-44.2); Mean Corpuscular HGB Conc 32.7 g/dl (32-36); Mean Corpuscular Hemoglobin 32.4 pg (26-34); Mean Corpuscular Volume 99.3 fl (80-100); Mean Platelet Volume 10.9 fl (7.4-10.4); Monocytes Absolute Auto 0.4 K/mm3 (0.1-0.6); Monocytes Percent Auto 6.6 % (2.6-8.5); Neutrophils Absolute Auto 3.7 K/mm3 (1.3-6.7); Neutrophils Percent Auto 62.9 % (45.5-73.1); Platelet Count Result 294 k/mm3 (150-375); Red Blood Count 4.44 M/mm3 (4.2-5.4); White Blood Count 5.9 K/mm3 (4.5-10.0)
[2021-03-13 03:21] LABS: INR 1.4
[2021-03-13 03:24] LABS: Partial Thromboplastin Time 92.4 SECONDS (22.3-36.8)
[2021-03-13] MEDS: ASPIRIN 81 MG ENTERIC TABLET PO (09:56)
[2021-03-13] MEDS: CLOPIDOGREL BISULFATE 75 MG TABLET PO (09:56)
[2021-03-13] MEDS: NICOTINE (*PBKC) 7 MG PATCH 1 PATCH TRANSDERM (09:59)
[2021-03-13] MEDS: HEPARIN SOD/D5W 100 UNITS/ML 25,000 UNITS/250 ML BAG 12 UNITS IV CONT (10:42)
--- NOTE | 2021-03-13 10:54 | WPDMODSED ---
Moderate Sedation Note-Pt Data Patient Data Diagnosis: status post mechanical mitral valve replacement systemic /coronary embolic event with subtherapeutic INR Present Complaint: this is a 55-year-old patient has a history of mechanical mitral valve replacement. The patient was not compliant with effective anticoagulation resulting in a Embolic event to her LAD. MICHAEL has been recommended to assess for thrombus associated with her mitral valve prosthesis Procedure to be performed/Plan: transesophageal echocardiogram Allergies Allergy/AdvReac Type Severity Reaction Status Date / Time No Known Allergies Allergy Unverified 01/17/21 16:09 Home Medications Medication Instructions Recorded Confirmed Type warfarin 1 mg tablet 1 mg PO .COMPLEX 10/18/20 03/11/21 History warfarin 6 mg tablet 12 mg PO .qod #30 tablet 10/18/20 03/11/21 Rx Current Medications: Active Medications Acetaminophen (Acetaminophen 325 Mg Tablet) 650 mg PO Q4H PRN PRN Reason: Mild Pain (1-3) or Fever Last Admin: 03/11/21 18:34 Dose: 650 mg Documented by: Hydrocodone Bitart/Acetaminophen (Hydrocodone/Acetaminophen (*Crx) 5-325 Mg Tablet) 1 tab PO Q4H PRN PRN Reason: Pain Rated 4-6 Last Admin: 03/11/21 22:13 Dose: 1 tab Documented by: Aspirin (Aspirin 81 Mg Enteric Tablet) 81 mg PO [facility] Last Admin: 03/13/21 09:56 Dose: 81 mg Documented by: Clopidogrel Bisulfate (Clopidogrel Bisulfate 75 Mg Tablet) 75 mg PO [facility] Last Admin: 03/13/21 09:56 Dose: 75 mg Documented by: Heparin Sodium (Porcine) (Heparin Sodium 5,000 Units/Ml Vial) 5,500 units IV PUSH PRN PRN PRN Reason: aPTT less than 55 seconds Heparin Sodium (Porcine) (Heparin Sodium 5,000 Units/Ml Vial) 2,500 units IV PUSH PRN PRN PRN Reason: aPTT 55 - 70 seconds Heparin Sodium/Dextrose (Heparin Sodium/D5w 100 Units/Ml) 25,000 units in 250 mls @ 12 mls/hr IV CONT .[id number] [facility]; Protocol Last Admin: 03/13/21 10:42 Dose: 1,200 units/hr, 12 mls/hr Documented by: Morphine Sulfate (Morphine Sulfate (*Crx) 4 Mg/Ml Inj) 4 mg IV PUSH Q2H PRN PRN Reason: Pain Rated 7-10 Nicotine (Nicotine (*Pbkc) 7 Mg Patch) 1 patch TRANSDERM QAM [facility] Last Admin: 03/13/21 09:59 Dose: 1 patch Documented by: Nitroglycerin (Nitroglycerin Sl 0.4 Mg Tablet) 0.4 mg SUBLINGUAL Q5MIN PRN PRN Reason: Chest Pain Last Admin: 03/11/21 22:13 Dose: 0.4 mg Documented by: Nitroglycerin (Nitroglycerin Ointment 1 Inch Dose) 0.5 inch TRANSDERM Q6HR [facility] Last Admin: 03/13/21 07:06 Dose: Not Given Documented by: Ondansetron HCl (Ondansetron Inj 4 Mg/2 Ml Vial) 4 mg IV PUSH Q4H PRN PRN Reason: Nausea Warfarin Sodium (Warfarin (*Pbkc) 10 Mg Tablet) 10 mg PO DAILY@1700 [facility] Last Admin: 03/12/21 16:50 Dose: 10 mg Documented by: Sedation/Anesthesia: No previous sedation/anesthesia problems (including family history). 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 Lung nodule Lung nodule seen on imaging study Mitral valve regurgitation Tobacco abuse Surgical History Surgical History Bioprosthetic mitral valve replacement, current hospitalization Hx of hysterectomy Family History Family History Father Hypertension Family history of malignant neoplasm, Onset Age: 75 Social History Social History Social History: Smoking packs per day: 1 Smoking cigarettes per day: 20.0 Years smoked: 42 Smoking pack-years: 42.00 Smoking status: Current every day smoker Tobacco type: cigarettes Second hand tobacco smoke exposure: Yes Alcohol intake: unknown Substance use: never Substance use type: does not use Gender identity (if verbalized by the patient): Female Spiritual care concerns: No
--- NOTE | 2021-03-13 11:30 | ECHO_ITS ---
Patient Info Name: Blank Mckeon Age: 55 years : 1965 Gender: Female Ht: 63 in Wt: 195 lbs BSA: 2.02 m2 HR: 90 bpm BP: 116 / 75 mmHg Heart Rhythm: Sinus Rhythm Technical Quality: Good Exam Date: 03/13/2021 11:21 AM Exam Location: [facility] Pulmonary Exam Room: [facility] Patient Status: Inpatient Admit Date: 03/12/2021 Staff Ordering Physician: Bessy Garcia [place] Strip Inspector: Margi Benítez RDCS Attending Provider: Ronaldo Clark MD Referring Physician: Radha HAIDER; Exam Type: CA echo transesophageal Study Info Indications - mechanical MVR /THROMBUS Limited two-dimensional transesophageal examination is performed. Report Signatures
--- NOTE | 2021-03-13 12:14 | WPDCARDPROC ---
Cardiac Cath Procedure Note Date of procedure:: 03/13/21 Performing physician:: Ronaldo Clark MD Indication:: Mechanical mitral valve prosthesis with coronary embolization Brief clinical history:: this is a 55-year-old woman with the chronically implanted mechanical mitral valve who has been subtherapeutic and presented to the hospital with a anterior infarction resulting from embolic event to her LAD. Inspection of her mitral valve prosthesis has been recommended Procedure Procedure performed:: transesophageal echocardiogram Sedation/Medication given:: fentanyl 50 mg Versed 4 mg case start time 11:52 a.m. case end time 12:02 p.m. sedation provided by Dian Min RN, trained observer Estimated blood loss:: no blood loss Procedure note:: patient was brought to the cardiac catheterization lab holding area room 7. Where she was in the supine position and in the postabsorptive state. Or pharyngeal benzocaine was sprayed for topical anesthesia. Following the she was sedated with a combination of fentanyl and Versed detailed above. The esophageal echo probe was placed into the oropharynx and easily advanced into the esophagus where examination was carried out. Examination was performed of the left atrium, the mitral valve prosthesis and the aortic valve as well as the aortic arch and descending aorta. Following this the probe was removed and the patient is recovering uneventfully. Findings:: The left atrium is moderately dilated. The mitral valve is a mechanical tilting disc prosthesis which is well visualized. The discs are seen and appear to be normal and crisp in appearance. There is no evidence of any thrombotic material attached to the discs or there mitral valve apparatus. There is no Doppler evidence of prosthetic regurgitation. The left ventricle is of normal size and contracts well in all segments ejection fraction is 55-60% by visual estimation. The aortic valve is a normal trileaflet valve which is thin and pliable and normal in appearance. The ascending aorta aortic arch are normal in appearance are free of any evidence of mobile atheromatous material. The interatrial septum is visually intact no discontinuity and no Doppler evidence of flow across the septum. Conclusion:: Transesophageal echocardiogram of this patient's mechanical mitral valve prosthesis which appears to be unremarkable. There is no evidence of any residual thrombus associated with the valve prosthesis. Ronaldo Clark MD [facility]
[2021-03-13] MEDS: WARFARIN (*PBKC) 4 MG TABLET 12 MG PO (17:22)
[2021-03-13] MEDS: ACETAMINOPHEN 325 MG TABLET 650 MG PO (17:23)
[2021-03-13] MEDS: HYDROcodone/acetaminophen (*CRX) 5-325 MG TABLET 1 TAB PO (21:46)
--- NOTE | 2021-03-14 00:22 | PC.NURSE ---
This patient, Blank Mckeon, was transferred to [facility] on 03/14/21 at 0020. Personal belongings sent with patient. Report given to [ ]. Appropriate documentation sent with patient.
--- NOTE | 2021-03-14 00:31 | PC.NURSE ---
This patient, Blank Mckeon, was received from [ IMU] on 03/14/21 at 0015. Patient/family oriented to unit policies and routines
[2021-03-14 05:00] VITALS: BP 98/56; PULSE 65; RESP 14; TEMP 36.6; O2SAT 97
[2021-03-14 06:27] LABS: INR 1.8; Prothrombin Time 20.2 Seconds (11.1-14.7)
[2021-03-14 07:24] LABS: Partial Thromboplastin Time > 200.0 SECONDS (22.3-36.8)
[2021-03-14 08:32] VITALS: BP 114/59; PULSE 74; RESP 16; TEMP 35.7; O2SAT 98
--- NOTE | 2021-03-14 08:40 | PM.PNCARD ---
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 Patient presents with anginal chest pain, EKG shows tall T-waves in the anterolateral leads, and troponins are elevated consistent with non ST elevation TN. Patient's INR was subtherapeutic at presentation, and possibility of cardioembolic event to the coronary arteries cannot be ruled out. Coronary angiogram on 03/11/21 showed: 1. 100% thrombotic occlusion distal LAD ( findings suggestive of coronary embolic event). No other significant obstructive CAD. 2. LV dysfunction with segmental wall motion abnormality, akinetic apical segment; EF about 45%, LVEDP 10 mmHg. Balloon angioplasty of the distal LAD as performed with alevism of flow. She has been placed on heparin drip to help in bridging to therapeutic INR of 2.5-3.5. She is also on Coumadin, aspirin, Plavix. (2) History of mitral valve replacement with mechanical valve: Code(s): Z95.2 - Presence of prosthetic heart valve Status: Acute Assessment and Plan: See above. Chronic anticoagulation with warfarin with a target INR of 2.5-3.5 with low-dose aspirin. Plavix for 1 month. (3) Tobacco abuse: Code(s): Z72.0 - Tobacco use Status: Acute Assessment and Plan: Smoking cessation counseling was done. Additional Plan I talked with her extensively about the importance of maintaining a therapeutic INR. Patient states that prior to her presentation to the hospital she had missed 1 dose of Coumadin. Additionally, she says that she recently started the keto diet and has been eating a lot of salads and avocados. I talked to her about avocados being very high in vitamin K. We discussed that In the absence of multiple missed doses of Coumadin, this change in diet probably caused her subtherapeutic INR. she understands the importance of monitoring her dietary intake of vitamin K. I also talked to her at length about maintaining a heart healthy, low-fat, low-cholesterol diet. I explained to her that this may be difficult to achieve with is following the keto diet as the keto diet is very high in fat. I talked to her about better dietary options. I also talked to her about the importance of smoking cessation. She states that she has not smoked since Thursday and is wanting to continue nicotine patches after her hospital discharge with the hopes of quitting completely. I congratulated her on her efforts to quit smoking. Time Spent With Patient Time with patient: 25 - 35 minutes Subjective Date/time seen: 03/14/21 08:40 Cardiology follow up for chest pain Date of service 03/14/2021: Patient is feeling well today. She denies any chest pain. She is very eager to go home because she is worried about the cost of her hospital stay and inability to pay her bills. I talked to her at length about the importance of reaching a therapeutic INR before discharge. Review of Systems Review of Systems: All systems reviewed & are unremarkable except as noted in HPI and below Constitutional: Constitutional: Denies fatigue, Denies lethargy and Denies weakness Eyes: Eyes: Denies change in vision ENT: Reports Normal hearing present Cardiovascular: Cardiovascular: Denies chest pain, Denies pedal edema and Denies leg edema Respiratory: Respiratory: Denies dyspnea Gastrointestinal: Gastrointestinal: Denies nausea and Denies vomiting Genitourinary: Genitourinary: Denies hematuria Musculoskeletal: Musculoskeletal: Denies back pain and Denies neck pain Integumentary/Breasts: Skin/Breast: Denies unusual bruising Neurologic: Denies Abnor
[2021-03-14] MEDS: NICOTINE (*PBKC) 7 MG PATCH 1 PATCH TRANSDERM (08:49)
[2021-03-14] MEDS: ASPIRIN 81 MG ENTERIC TABLET PO (08:49)
[2021-03-14] MEDS: CLOPIDOGREL BISULFATE 75 MG TABLET PO (09:18)
[2021-03-14] MEDS: HEPARIN SOD/D5W 100 UNITS/ML 25,000 UNITS/250 ML BAG 10 UNITS IV CONT (10:56)
[2021-03-14 12:25] LABS: INR 1.9; Prothrombin Time 21.6 Seconds (11.1-14.7)
[2021-03-14 12:45] VITALS: BP 107/59; PULSE 66; RESP 16; TEMP 35.6; O2SAT 100
--- NOTE | 2021-03-14 13:17 | PC.NURSE ---
On 03/14/21, the student, [ Margarita Staples], provided care and completed [facility] documentation on this patient. I have reviewed the student's documentation and agree with the findings.
[2021-03-14 15:31] LABS: Partial Thromboplastin Time 113.1 SECONDS (22.3-36.8)
[2021-03-14 16:00] VITALS: BP 112/62; PULSE 64; RESP 18; TEMP 36.1; O2SAT 98
[2021-03-14] MEDS: WARFARIN (*PBKC) 10 MG TABLET PO (16:59)
[2021-03-14] MEDS: WARFARIN (*PBKC) 4 MG TABLET PO (16:59)
[2021-03-14 19:22] VITALS: BP 101/55; PULSE 72; RESP 16; TEMP 36.1; O2SAT 100
[2021-03-14 22:37] LABS: Partial Thromboplastin Time 99.6 SECONDS (22.3-36.8)
[2021-03-15] VITALS: BP 109/40; PULSE 66; RESP 16; TEMP 36.4; O2SAT 98
[2021-03-15 05:49] LABS: INR 2.3; Prothrombin Time 24.5 Seconds (11.1-14.7)
[2021-03-15 05:54] LABS: Partial Thromboplastin Time 134.1 SECONDS (22.3-36.8)
[2021-03-15 09:14] VITALS: BP 110/53; PULSE 74; RESP 18; TEMP 35.9; O2SAT 96
[2021-03-15] MEDS: CLOPIDOGREL BISULFATE 75 MG TABLET PO (09:23)
[2021-03-15] MEDS: ASPIRIN 81 MG ENTERIC TABLET PO (09:23)
[2021-03-15] MEDS: NICOTINE (*PBKC) 7 MG PATCH 1 PATCH TRANSDERM (09:24)
[2021-03-15 09:41] VITALS: O2SAT 94
--- NOTE | 2021-03-15 09:54 | PM.PNCARD ---
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 Patient presents with anginal chest pain, EKG shows tall T-waves in the anterolateral leads, and troponins are elevated consistent with non ST elevation FL. Patient's INR was subtherapeutic at presentation, and possibility of cardioembolic event to the coronary arteries cannot be ruled out. Coronary angiogram on 03/11/21 showed: 1. 100% thrombotic occlusion distal LAD ( findings suggestive of coronary embolic event). No other significant obstructive CAD. 2. LV dysfunction with segmental wall motion abnormality, akinetic apical segment; EF about 45%, LVEDP 10 mmHg. Balloon angioplasty of the distal LAD as performed with caodaism of flow. She has been placed on heparin drip to help in bridging to therapeutic INR of 2.5-3.5. She is also on Coumadin, aspirin, Plavix. INR was 2.3 this morning. We will recheck another INR mid day. If it is 2.5 she can be discharged. <MARGARITO Joya - Last Filed: 03/15/21 09:59> (2) History of mitral valve replacement with mechanical valve: Code(s): Z95.2 - Presence of prosthetic heart valve <MARGARITO Joya - Last Filed: 03/15/21 09:59> Status: Acute <MARGARITO Joya - Last Filed: 03/15/21 09:59> Assessment and Plan: See above. Chronic anticoagulation with warfarin with a target INR of 2.5-3.5 with low-dose aspirin. Plavix for 1 month. <MARGARITO Joya - Last Filed: 03/15/21 09:59> (3) Tobacco abuse: Code(s): Z72.0 - Tobacco use <MARGARITO Joya - Last Filed: 03/15/21 09:59> Status: Acute <MARGARITO Joya - Last Filed: 03/15/21 09:59> Assessment and Plan: Smoking cessation counseling was done. Receiving nicotine patches. <MARGARITO Joya - Last Filed: 03/15/21 09:59> Additional Plan Attending addendum: Agree with above documentation and plan of care as outlined. INR is now therapeutic at 2.5. Discontinue heparin infusion. Compliance must be observed. Follow-up as scheduled. Discharge home today. Frequent, close INR follow-up as an outpatient. <Steven Venegas MD - Last Filed: 03/15/21 14:50> Subjective Date/time seen: 03/15/21 09:54 Date of service 03/14/2021: Patient is feeling well today. She denies any chest pain. She is very eager to go home because she is worried about the cost of her hospital stay and inability to pay her bills. I talked to her at length about the importance of reaching a therapeutic INR before discharge. Date of service 03/15/2021: Continues to deny any chest pain today. I talked to her about the results of her INR and reiterated that her INR needs to be 2.5 before she can go home. She states that no matter what her INR is today she will leave the hospital. I let her know that the plan is to recheck her INR at noon to determine if it is therapeutic. <MARGARITO Joya - Last Filed: 03/15/21 09:59> Review of Systems Review of Systems: All systems reviewed & are unremarkable except as noted in HPI and below <MARGARITO Joya - Last Filed: 03/15/21 09:59> Constitutional: Constitutional: Denies fatigue, Denies lethargy and Denies weakness <MARGARITO Joya - Last Filed: 03/15/21 09:59> Eyes: Eyes: Denies change in vision <MARGARITO Joya - Last Filed: 03/15/21 09:59> ENT: Reports Normal hearing present and Denies neck pain <MARGARITO Joya - Narayan F
[2021-03-15 12:10] LABS: INR 2.5; Prothrombin Time 26.4 Seconds (11.1-14.7)
[2021-03-15 12:15] LABS: Partial Thromboplastin Time 103.4 SECONDS (22.3-36.8)
--- NOTE | 2021-03-15 12:26 | PM.DS ---
DS: Admitting Diagnosis Admitting Diagnosis Admitting Diagnosis: Chest pain DS: Discharge Diagnosis Discharge Diagnosis (1) History of mitral valve replacement with mechanical valve: Code(s): Z95.2 - Presence of prosthetic heart valve Status: Acute Assessment and Plan: See above. Chronic anticoagulation with warfarin with a target INR of 2.5-3.5 with low-dose aspirin. Plavix for 1 month. DS: Summary Hospital Course Reason for hospitalization: Chest pain Hospital Course: Patient presented to the emergency department on 03/11/21 with complaints of chest pain that occurred while she was at work. She reported having substernal pain that radiated to her left arm and jaw. At the time of hospital presentation she was noted to have a subtherapeutic INR 1.4. She is systemically anticoagulated with warfarin for history of a mitral valve replacement in 2005. EKG taken emergency department showedsinus rhythm, incomplete right bundle-branch block, T abnormality in the anterolateral leads. Troponins were elevated with current peak troponin level 2.85. she was taken to the cardiac catheterization lab for coronary angiogram which revealed 100% thrombotic occlusion distal LAD (findings suggestive of coronary embolic event) with no other significant obstructive CAD. PCI -balloon angioplasty of distal LAD was performed with alevism of flow; mild residual nonocclusive thrombus in the distal LAD. subsequent to this intervention she was placed on a heparin drip in order to bridge her to a therapeutic INR. INR goal 2.5-3.5. She was also resumed on her home warfarin dose. She was started on Plavix and aspirin. Today, her INR has reached therapeutic level of 2.5. She is stable for discharge home. Time spent discussing smoking cessation with patient: 3 to 10 minutes Status at Discharge Functional status at discharge: independent ambulation Overall status at discharge: patient is back to baseline Time Spent with Patient Time attestation: Total time spent providing and/or coordinating discharge services: Time spent: Greater than 30 minutes Exam Narrative: Exam Narrative: Pleasant middle-aged female resting in bed. Alert and oriented. Appears stated age. Const: General: comfortable and no acute distress HENMT: Head: normal to inspection Eyes: General: appearance normal, both eyes and all related structures Neck: Neck: supple and no JVD Resp: Effort & Inspection: normal respiratory effort Auscultation: clear to auscultation bilaterally Cardio: Rate: regular rate Rhythm: regular rhythm Heart sounds: no murmurs Other: Mechanical S1 GI: Auscultation: normal bowel sounds Skin: General skin exam: normal color Other: R groin cath site free from swelling, redness, pain, hematoma. Neuro: Cranial nerves: Yes Normal hearing present Cognition (Neuro): normal cognition Speech: No Abnormal speech present Extrem: General: normal to inspection, no edema and no pedal edema Psych: Mental Status: mental status grossly normal Affect: normal affect DS: Data Data Completed and Pending Labs on day of discharge: Labs from last 24 hours 03/15/21 03/15/21 03/15/21 11:34 11:34 05:14 PT Cancelled 26.4 H 24.5 H INR Cancelled 2.5 2.3 APTT 103.4 H 134.1 H 03/14/21 03/14/21 21:59 14:07 PT INR APTT 99.6 H 113.1 H Discharge Plan Discharge Discharging Clinician: Bessy Garcia Patient Disposition: Home, Self-Care Activity: other - see discharge instructions Diet: other - see discharge instructions Wound Care Instructions: other - see discharge instructions Discharge Instructions: [facility] [address]
--- NOTE | 2021-03-15 13:19 | PC.NURSE ---
On 03/15/21, the student, [Margraita Staples ], provided care and [facility]. I have reviewed the student's documentation and agree with the findings.
== END 2021-03-15 14:45 | disposition home or self-care (01) | DRG 251 ==
LOC: ANHED 13:32 → ANHIMU 16:26 → ANH3MED 03-14 00:45 → ANHIMU 03-18 18:13
PROVIDERS: Internal Medicine Cardiovascular Disease; Admitting Provider Specialist; Emergency Provider Emergency Medicine; PCP Family Medicine; Visit Provider Nurse Practitioner
PROC: 4A023N7 Measurement of Cardiac Sampling and Pressure, Left Heart, Percutaneous Approach (ICD-10-PCS; CPT 93452; principal; 2021-03-12 11:00)
PROC: 02703ZZ Dilation of Coronary Artery, One Artery, Percutaneous Approach (ICD-10-PCS; CPT 92920; 2021-03-12 11:00)
PROC: 02703ZZ Dilation of Coronary Artery, One Artery, Percutaneous Approach (ICD-10-PCS; 2021-03-12 11:00)
PROC: B24BZZ4 Ultrasonography of Heart with Aorta, Transesophageal (ICD-10-PCS; CPT 93312; principal; 2021-03-13 11:30)
DX: I21.4 Non-ST elevation (NSTEMI) myocardial infarction (principal); R91.1 Solitary pulmonary nodule; I10 Essential (primary) hypertension; F17.210 Nicotine dependence, cigarettes, uncomplicated; Z79.01 Long term (current) use of anticoagulants; Z95.2 Presence of prosthetic heart valve; Z90.710 Acquired absence of both cervix and uterus
CPT/HCPCS: 36415; 71046; 80048; 84484; 85025; 85610; 85730; 92920; 93005; 93312; 93320; 93325; 93458; 96374; 96375; 99285; A9270; C1725; C1760; C1769; C1887; C1894; G0269; G0378; J0583; J1644; J1650; J2250; J2270; J3010; J7030; J7040

== ENCOUNTER 2021-03-18 15:50 | Outpatient (CLI) | payer BC, SELFPAY ==
[2021-03-18 16:31] LABS: INR 2.8; Prothrombin Time 28.8 Seconds (11.1-14.7)
== END 2021-03-18 15:51 | disposition home or self-care (01) ==
LOC: ANHLAB 15:57
PROVIDERS: PCP Family Medicine; Visit Provider Nurse Practitioner
DX: Z95.2 Presence of prosthetic heart valve (principal)
CPT/HCPCS: 36415; 85610

== ENCOUNTER 2021-06-24 17:04 | Outpatient (RCR) | payer BC, SELFPAY ==
[2021-04-22 07:57] LABS: INR 3.8; Prothrombin Time 36.1 Seconds (11.1-14.7)
[2021-04-30 17:18] LABS: INR 3.9; Prothrombin Time 37.2 Seconds (11.1-14.7)
[2021-05-11 10:09] LABS: INR 3.7; Prothrombin Time 35.2 Seconds (11.1-14.7)
[2021-06-18 16:31] LABS: Prothrombin Time 46.2 Seconds (11.1-14.7)
[2021-06-18 17:27] LABS: INR 5.2
== END 2021-07-21 23:59 | disposition home or self-care (01) ==
LOC: ANHLAB 17:04
PROVIDERS: PCP Family Medicine; Visit Provider Internal Medicine Cardiovascular Disease
DX: Z51.81 Encounter for therapeutic drug level monitoring (principal); Z95.2 Presence of prosthetic heart valve; Z79.01 Long term (current) use of anticoagulants
CPT/HCPCS: 36415; 85610

== ENCOUNTER 2021-08-05 15:40 | Outpatient (CLI) | payer BC, SELFPAY ==
[2021-08-05 16:27] LABS: Prothrombin Time 22.3 Seconds (11.1-14.7)
== END 2021-08-05 15:41 | disposition home or self-care (01) ==
LOC: ANHLAB 15:42
PROVIDERS: PCP Family Medicine; Visit Provider Internal Medicine Cardiovascular Disease
DX: Z79.01 Long term (current) use of anticoagulants (principal); Z95.2 Presence of prosthetic heart valve
CPT/HCPCS: 36415; 85610

== ENCOUNTER 2021-11-19 16:08 | Outpatient (RCR) | payer BC, SELFPAY ==
[2021-09-10 09:25] LABS: Prothrombin Time 22.2 Seconds (11.1-14.7)
[2021-10-15 17:47] LABS: INR 3.3; Prothrombin Time 32.6 Seconds (11.1-14.7)
[2021-11-19 16:51] LABS: INR 2.2; Prothrombin Time 23.6 Seconds (11.1-14.7)
== END 2021-12-09 23:59 | disposition home or self-care (01) ==
LOC: ANHLAB 16:08
PROVIDERS: PCP Family Medicine; Visit Provider Internal Medicine Cardiovascular Disease
DX: Z51.81 Encounter for therapeutic drug level monitoring (principal); Z95.2 Presence of prosthetic heart valve; Z79.01 Long term (current) use of anticoagulants
CPT/HCPCS: 36415; 85610

== ENCOUNTER 2022-03-11 06:58 | Outpatient (RCR) | payer BC, SELFPAY ==
[2021-12-26 17:01] LABS: INR 4.9; Prothrombin Time 43.9 Seconds (11.1-14.7)
[2022-02-04 17:00] LABS: Prothrombin Time 22.4 Seconds (11.1-14.7)
[2022-03-11 07:36] LABS: INR 3.5; Prothrombin Time 34.4 Seconds (11.1-14.7)
== END 2022-03-26 23:59 | disposition home or self-care (01) ==
LOC: ANHLAB 06:58
PROVIDERS: PCP Family Medicine; Visit Provider Internal Medicine Cardiovascular Disease
DX: Z51.81 Encounter for therapeutic drug level monitoring (principal); Z95.2 Presence of prosthetic heart valve; Z79.01 Long term (current) use of anticoagulants
CPT/HCPCS: 36415; 85610

== ENCOUNTER 2022-06-18 17:05 | Outpatient (RCR) | payer SELFPAY ==
[2022-04-02 08:10] LABS: INR 3.4; Prothrombin Time 33.1 Seconds (11.1-14.7)
[2022-05-22 12:30] LABS: INR 3.2
[2022-06-11 16:48] LABS: INR 1.4; Prothrombin Time 16.2 Seconds (11.1-14.7)
[2022-06-18 17:51] LABS: INR 2.7; Prothrombin Time 27.7 Seconds (11.1-14.7)
== END 2022-07-01 23:59 | disposition home or self-care (01) ==
LOC: ANHLAB 17:05
PROVIDERS: PCP Family Medicine; Visit Provider Internal Medicine Cardiovascular Disease
DX: Z51.81 Encounter for therapeutic drug level monitoring (principal); Z95.2 Presence of prosthetic heart valve; Z79.01 Long term (current) use of anticoagulants
CPT/HCPCS: 36415; 85610

== ENCOUNTER 2022-12-29 13:16 | Outpatient (RCR) | payer SELFPAY ==
[2022-10-22 07:44] LABS: INR 3.4; Prothrombin Time 32.9 Seconds (11.1-14.7)
[2022-12-29 13:56] LABS: INR 2.6; Prothrombin Time 30.2 Seconds (11.1-14.7)
== END 2023-01-20 23:59 | disposition home or self-care (01) ==
LOC: ANHLAB 13:16
PROVIDERS: PCP Family Medicine; Visit Provider Internal Medicine Cardiovascular Disease
DX: Z51.81 Encounter for therapeutic drug level monitoring (principal); Z95.2 Presence of prosthetic heart valve; Z79.01 Long term (current) use of anticoagulants
CPT/HCPCS: 36415; 85610

== ENCOUNTER 2023-01-24 10:41 | Outpatient (NON) | payer BC, SELFPAY ==
[2023-01-24 11:12] LABS: INR 2.3; Prothrombin Time 26.6 Seconds (11.1-14.7)
== END 2023-01-24 10:42 | disposition home or self-care (01) ==
PROVIDERS: PCP Family Medicine; Visit Provider Internal Medicine Cardiovascular Disease
DX: Z95.2 Presence of prosthetic heart valve (principal); Z92.29 Personal history of other drug therapy
CPT/HCPCS: 85610

== ENCOUNTER 2023-03-23 16:59 | Outpatient (RCR) | payer SELFPAY ==
[2023-03-02 14:25] LABS: INR 2.8; Prothrombin Time 31.5 Seconds (11.1-14.7)
[2023-03-23 18:06] LABS: INR 2.7; Prothrombin Time 31.2 Seconds (11.1-14.7)
== END 2023-05-31 23:59 | disposition home or self-care (01) ==
LOC: ANHLAB 16:59
PROVIDERS: PCP Family Medicine; Visit Provider Internal Medicine Cardiovascular Disease
DX: Z51.81 Encounter for therapeutic drug level monitoring (principal); Z95.2 Presence of prosthetic heart valve; Z79.01 Long term (current) use of anticoagulants
CPT/HCPCS: 36415; 85610

== ENCOUNTER 2023-05-11 17:57 | Outpatient (NON) | payer BC, SELFPAY ==
[2023-05-11 18:44] LABS: INR 2.9; Prothrombin Time 32.9 Seconds (11.1-14.7)
== END 2023-05-11 17:58 | disposition home or self-care (01) ==
PROVIDERS: PCP Family Medicine; Visit Provider Internal Medicine Cardiovascular Disease
DX: Z95.2 Presence of prosthetic heart valve (principal); Z92.29 Personal history of other drug therapy
CPT/HCPCS: 36415; 85610

== ENCOUNTER 2023-06-08 13:37 | Outpatient (NON) | payer BC, SELFPAY ==
[2023-06-08 14:30] LABS: Basophils Absolute Auto 0.1 K/mm3 (0.0-0.1); Basophils Percent Auto 0.8 % (0.2-1.2); Eosinophils Absolute Auto 0.1 K/mm3 (0-0.3); Eosinophils Percent Auto 1.8 % (0-4.4); Hemoglobin 13.1 g/dL (12.0-15.0); Immature Granulocyte Absolute 0.01 K/mm3 (0.00-0.031); Immature Granulocyte Percent A 0.2 % (0-0.5); Lymphocytes Absolute Auto 2.25 K/mm3 (0.9-3.2); Lymphocytes Percent Auto 36.5 % (18.3-44.2); Mean Corpuscular HGB Conc 32.8 g/dl (32-36); Mean Corpuscular Hemoglobin 32.5 pg (26-34); Mean Corpuscular Volume 99.3 fl (80-100); Mean Platelet Volume 11.5 fl (7.4-10.4); Monocytes Absolute Auto 0.4 K/mm3 (0.1-0.6); Monocytes Percent Auto 6.6 % (2.6-8.5); Neutrophils Absolute Auto 3.3 K/mm3 (1.3-6.7); Neutrophils Percent Auto 54.1 % (45.5-73.1); Platelet Count Result 359 k/mm3 (150-375); Red Blood Count 4.03 M/mm3 (4.2-5.4); Red Cell Distribution Width 13.5 % (11.5-14.5); White Blood Count 6.2 K/mm3 (4.5-10.0)
[2023-06-08 14:40] LABS: INR 2.4; Prothrombin Time 28.2 Seconds (11.1-14.7)
[2023-06-08 15:03] LABS: Alanine Aminotransferase 25 U/L (6-35); Albumin Level 4.4 g/dL (3.5-5.1); Alkaline Phosphatase 62 U/L (38-126); Anion Gap 5 mmol/L (8-16); Aspartate Amino Transferase 32 U/L (14-36); Bilirubin,Total 0.9 mg/dL (0.2-1.3); Blood Urea Nitrogen 20 mg/dL (7-17); Calcium 9.5 mg/dL (8.4-10.2); Carbon Dioxide 29 mmol/L (22-30); Chloride 103 mmol/L (98-107); Estimated Glomerular Filt Rate > 60; Glucose 92 mg/dL (65-110); Potassium 4.8 mmol/L (3.4-5.0); Sodium 137 mmol/L (137-145)
[2023-06-08 15:19] LABS: Iron 72 ug/dL (37-170)
[2023-06-08 15:29] LABS: Percent Iron Saturation 22 % (20-50)
== END 2023-06-08 13:38 | disposition home or self-care (01) ==
LOC: HOME HLTH 13:39
PROVIDERS: PCP Family Medicine; Visit Provider Nurse Practitioner Adult Health
DX: R42 Dizziness and giddiness (principal); Z79.01 Long term (current) use of anticoagulants; Z95.2 Presence of prosthetic heart valve; Z92.29 Personal history of other drug therapy
CPT/HCPCS: 80053; 83540; 83550; 84443; 85025; 85610

== ENCOUNTER 2023-10-01 16:23 | Outpatient (NON) | payer BC, SELFPAY ==
[2023-10-01 17:39] LABS: INR 1.3; Prothrombin Time 17.3 Seconds (11.1-14.7)
== END 2023-10-01 16:24 | disposition home or self-care (01) ==
LOC: ANHLAB 16:26
PROVIDERS: PCP Family Medicine; Visit Provider Internal Medicine Cardiovascular Disease
DX: Z95.2 Presence of prosthetic heart valve (principal); Z92.29 Personal history of other drug therapy
CPT/HCPCS: 36415; 85610

== ENCOUNTER 2023-10-23 16:30 | Outpatient (RCR) | payer BC, SELFPAY ==
[2023-10-23 17:55] LABS: INR 2.7; Prothrombin Time 30.9 Seconds (11.1-14.7)
== END 2024-01-21 23:59 | disposition home or self-care (01) ==
LOC: ANHLAB 16:30
PROVIDERS: PCP Family Medicine; Visit Provider Internal Medicine Cardiovascular Disease
DX: I05.9 Rheumatic mitral valve disease, unspecified (principal); Z95.2 Presence of prosthetic heart valve
CPT/HCPCS: 36415; 85610

== ENCOUNTER 2024-05-19 16:30 | Outpatient (RCR) | payer BC, SELFPAY ==
[2024-02-29 14:46] LABS: INR 4.1; Prothrombin Time 40.8 Seconds (11.1-14.7)
[2024-03-08 14:52] LABS: INR 2.5
[2024-03-28 14:18] LABS: Prothrombin Time 50.3 Seconds (11.1-14.7)
[2024-03-28 14:31] LABS: INR 5.4
[2024-04-01 14:18] LABS: Prothrombin Time 23.7 Seconds (11.1-14.7)
[2024-05-19 17:57] LABS: INR 2.2; Prothrombin Time 24.3 Seconds (11.1-14.7)
== END 2024-05-29 23:59 | disposition home or self-care (01) ==
LOC: ANHLAB 16:30
PROVIDERS: PCP Family Medicine; Visit Provider Internal Medicine Cardiovascular Disease
DX: Z51.81 Encounter for therapeutic drug level monitoring (principal); Z79.01 Long term (current) use of anticoagulants
CPT/HCPCS: 36415; 85610

== ENCOUNTER 2024-06-20 13:47 | Outpatient (NON) | payer OTHER, BC, SELFPAY ==
[2024-06-20 14:31] LABS: INR 1.6; Prothrombin Time 19.8 Seconds (11.1-14.7)
== END 2024-06-20 13:48 | disposition home or self-care (01) ==
LOC: ANHLAB 13:55
PROVIDERS: PCP Family Medicine; Visit Provider Internal Medicine Cardiovascular Disease
DX: Z79.01 Long term (current) use of anticoagulants (principal)
CPT/HCPCS: 36415; 85610

== ENCOUNTER 2024-08-11 11:32 | Outpatient (RCR) | payer OTHER, BC, SELFPAY ==
[2024-08-11 12:20] LABS: INR 3.1; Prothrombin Time 31.8 Seconds (11.1-14.7)
== END 2024-11-09 23:59 | disposition home or self-care (01) ==
LOC: ANHLAB 11:32
PROVIDERS: PCP Nurse Practitioner Family; Visit Provider Internal Medicine Cardiovascular Disease
DX: Z51.81 Encounter for therapeutic drug level monitoring (principal); Z79.01 Long term (current) use of anticoagulants
CPT/HCPCS: 36415; 85610

== ENCOUNTER 2024-10-15 05:10 | Observation (INO) | payer OTHER, BC, SELFPAY ==
[2024-10-15] VITALS (15 sets, daily range): BP systolic 86–130; BP diastolic 43–76; PULSE 65–78; RESP 11–18; TEMP 36.4–36.8; O2SAT 91–100; BMI 28.7
--- NOTE | 2024-10-15 05:11 | ECG_ITS ---
Test Date: 2024-10-15 05:26:18 Measurements Intervals [place] Rate: 74 P: 73 MI: 170 QRS: 70 QRSD: 101 T: 57 QT: 413 QTc: 460 Interpretive Statements SINUS RHYTHM INCOMPLETE RIGHT BUNDLE BRANCH BLOCK CONSIDER INFERIOR INFARCT, AGE INDETERMINATE CONSIDER ANTERIOR INFARCT, AGE INDETERMINATE BASELINE ARTIFACT- V5 ABNORMAL ECG No previous ECG available for comparison Electronically Signed On 10-15-2024 07:59:39 [employer] by Rory Mehta D.O.
[2024-10-15 05:27] LABS: Basophils Percent Auto 0.5 % (0.2-1.2); Eosinophils Absolute Auto 0.2 K/mm3 (0-0.3); Eosinophils Percent Auto 2.6 % (0-4.4); Hematocrit 39.9 % (37.0-47.0); Hemoglobin 13.5 g/dL (12.0-15.0); Immature Granulocyte Absolute 0.01 K/mm3 (0.00-0.031); Immature Granulocyte Percent A 0.2 % (0-0.5); Lymphocytes Absolute Auto 2.75 K/mm3 (0.9-3.2); Lymphocytes Percent Auto 48.3 % (18.3-44.2); Mean Corpuscular HGB Conc 33.8 g/dl (32-36); Mean Corpuscular Hemoglobin 32.6 pg (26-34); Mean Corpuscular Volume 96.4 fl (80-100); Mean Platelet Volume 10.5 fl (7.4-10.4); Monocytes Absolute Auto 0.4 K/mm3 (0.1-0.6); Monocytes Percent Auto 7.4 % (2.6-8.5); Neutrophils Absolute Auto 2.3 K/mm3 (1.3-6.7); Platelet Count Result 310 k/mm3 (150-375); Red Blood Count 4.14 M/mm3 (4.2-5.4); Red Cell Distribution Width 13.1 % (11.5-14.5); White Blood Count 5.7 K/mm3 (4.5-10.0)
--- OUTSIDE RECORDS SUMMARY | 2024-10-15 05:31 | XMS_ITS | Patient Health Summary ---
Author Organization [facility] [employer] Address [address] [place] [address] Care Team Providers Care Box Truck Owner Operator Name Role Phone Unavailable Primary Care Provider Unavailabl e Note from [facility] [employer] [facility],non-owned Affiliates and Associated Physician Practices is amultiple site organization consisting of ambulatory clinics and hospital sitesin [place], [place], [place] and [place]. This disclosure is being madepursuant to the Care Everywhere program and may not contain all information available regarding this patient. Last updated 18.[facility] [employer] Social History Tobacco Use Types Packs/Day Years Used Date Smoking Tobacco: Never Assessed Sex and Gender Information Value Date Recorded Sex Assigned at Not on file Gender Identity Not on file Sexual Orientation Not on file Procedures * MAMMO BILAT SCREENING(Performed 11/22/2015) Performed for Visit for screening mammogram * MAMMO BILAT SCREENING(Performed 06/19/2011) Performed for Other screening mammogram Results * MAMMO SCREENING DIGITAL IMAGE BILAT G0202 (11/22/2015 1:30 PM CDT) Only the most recent of2 resultswithin the time period is included. Anatomical Region Laterality Modality Breast Bilateral Mammography 11/22/2015 1:56 PM CDT Narrative 11/22/2015 2:38 PM CDT DIGITAL MAMMOGRAM SCREENING BILATERAL WITH CAD CORRELATION 3-D DIGITAL TOMOSYNTHESIS DATE: 11/22/2015, 1:01 PM PREVIOUS EXAM DATE: 06/19/2011 HISTORY: Screening. TECHNIQUE: Bilateral breast craniocaudad (CC) and mediolateral oblique (MLO) views. These images were interpreted with the aid of CAD. 3-D Digital Tomosynthesis was performed. TECHNOLOGIST: Abimbola Frasca, RT (R)(M) TISSUE DENSITY: Heterogeneously dense. This may lower the sensitivity of mammography. Please correlate with clinical examination. FINDINGS: There are obscured nodular densities bilaterally likely representing multiple cysts. Nodules on the right are smaller in size as compared to the previous examination. No dominant suspicious mass or clustered microcalcification identified. ASSESSMENT: (BI-RADS 2) Benign finding. RECOMMENDATIONS: Continued annual screening mammography. The above findings should be correlated with physical examination. A relatively nonspecific study should not preclude additional evaluation if suspicious findings are present clinically. An [employer] certified facility. [facility] Centers utilize N[employer] as a reminder system to notify patients of their next recommended mammograms. Edited by Odalys Whitney on 11/22/2015 2:06 PM Abimbola Milan MD MAMMO ORDERABLES
--- OUTSIDE RECORDS SUMMARY | 2024-10-15 05:31 | XMS_ITS | Clinical Summary ---
Author Organization [facility] [employer] Address [address] [place] [address] Care Team Providers Care Purification Operator Name Role Phone Unavailable Primary Care Provider Unavailabl e Source Comments [facility],non-owned Affiliates and Associated Physician Practices is amultiple site organization consisting of ambulatory clinics and hospital sitesin [place], [place], [place] and [place]. This disclosure is being madepursuant to the Care Everywhere program and may not contain all information available regarding this patient. Last updated 18.[facility] [employer] Family History Medical History Relation Name Comments Cancer - Breast Paternal Aunt Relation Name Status Comments Paternal Aunt Social History Tobacco Use Types Packs/Day Years Used Date Smoking Tobacco: Never Assessed Sex and Gender Information Value Date Recorded Sex Assigned at Not on file Gender Identity Not on file Sexual Orientation Not on file Plan of Treatment Health Maintenance Due Date Last Done Comments COLOGUARD (AGES 45-75) - COL ON CA SCREENING 1966 COLON MONITORING 1966 COLONOSCOPY - COLON CA SCREENING 1966 CT COLONOGRAPHY - COLON CA SCREENING 1966 Colorectal Cancer Screening 1966 FIT - COLON CA SCREENING 1966 FLEX SIG - COLON CA SCREENING 1966 LIPID TESTING 1966 PAP SMEAR 1966 HIV SCREENING 1981 HEPATITIS C SCREENING 03/28/1984 DTAP/TDAP/TD VACCINES (1 - Tdap) 1985 HEPATITIS B VACCINE (1 of 3 - 19+ 3-dose series) 1985 PNEUMOCOCCAL VACCINE 50+ (1 of 1 - PCV) 2016 ZOSTER VACCINE (1 of 2) 2016 MAMMOGRAM 11/21/2017 11/22/2015, 06/19/2011 COVID-19 VACCINE (2023-2 5 season) 2024 INFLUENZA VACCINE (#1) 2024 DEPRESSION SCREENING 08/31/2024 HIB VACCINE Aged Out No longer eligi ble based on patient's age to complete this topic HPV VACCINE Aged Out No longer eligi ble based on patient's age to complete this topic MENINGOCOCCAL (Group B) VACCINE Aged Out No longer eligible b ased on patient's age to complete this topic MENINGOCOCCAL VACCINE Aged Out No sunitha alberto eligible based on patient's age to complete this topic PNEUMOCOCCAL VACCINE Aged Out No long er eligible based on patient's age to complete this topic Procedures Procedure Name Priority Date/Time Associated Diagnosis Comments MAMMO BILAT SCREENING Routine 11/22/2015 1:30 PM CDT Visit for screening mammogram from Last 3 Months or Most Recently Relevant to Health Maintenance Results * MAMMO SCREENING DIGITAL IMAGE BILAT G0202 (11/22/2015 1:30 PM CDT) Anatomical Region Laterality Modality Breast Bilateral Mammography 11/22/2015 1:56 PM CDT Narrative 11/22/2015 2:38 PM CDT DIGITAL MAMMOGRAM SCREENING BILATERAL WITH CAD CORRELATION 3-D DIGITAL TOMOSYNTHESIS DATE: 11/22/2015, 1:01 PM PREVIOUS EXAM DATE: 06/19/2011 HISTORY: Screening. TECHNIQUE: Bilateral breast craniocaudad (CC) and mediolateral oblique (MLO) views. These images were interpreted with the aid of CAD. 3-D Digital Tomosynthesis was performed. TECHNOLOGIST: Abimbola Wu, RT (R)(M) TISSUE DENSITY: Heterogeneously dense. This [...] if suspicious findings are present clinically. An [employer] certified facility. [facility] utilize [employer] as a reminder system to notify patients of their next recommended mammograms. Edited by Odalys Whitney on 11/22/2015 2:06 PM Abimbola Milan MD MAMMO ORDERABLES from Last 3 Months or Most Recently Relevant to Health Maintenance Blank Mckeon Personal/Family Self 1965 [facility] [place] [address]
--- OUTSIDE RECORDS SUMMARY | 2024-10-15 05:31 | XMS_ITS | Encounter Summary ---
Author Organization [facility] Address [address] [place] [address] Care Team Providers Care Light Adjuster Name Role Phone Ginny Leo NP Primary Care Provider [phone] Tk Wyman MD Unavailable Encounter Details Date Type Department Care Team (Late st Contact Info) Description 10/23/2023 Orders Only [facility] Health Information Management [address] [place] [id number] Scanning, Provider Social History Tobacco Use Types Packs/Day Years Used Date Smoking Tobacco: Every Day Cigarettes 1 42 Passive Smoke Exposure: Current Smokeless Tobacco: Never Comments:1ppd Alcohol Use Standard Drinks/Week Comments Yes 0 (1 standard drink = 0.6 oz pur e alcohol) rarely PHQ-2 Answer Date Recorded PHQ-2 Total Score (If total score is 3 or more points, staff should administer the PHQ-9) 0 10/14/2023 Comments No Sex and Gender Information Value Date Recorded Sex Assigned at Not on file Legal Sex 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 Gender Identity Female 11/25/2023 7:08 PM CDT Sexual Orientation Straight 11/25/2023 7: 08 PM CDT documented as of this encounter Plan of Treatment Not on file documented as of this encounter Procedures Procedure Name Priority Date/Time Associated Diagnosis Comments SCAN - LABS 10/23/2023 documented in this encounter Results * SCAN - LABS (10/23/2023) us Provider Scanning Final Result documented in this encounter Visit Diagnoses Not on filedocumented in this encounter Care Teams Light Adjuster Relationship Specialty Start Date End Date Ginny Leo NP [address] [place] [address] PCP - General Family Medicine 09/02/23 Tk Wyman MD [address] [place], [place] [id number] Consulting Physician Cardiology 09/02/23 documented as of this encounter
--- OUTSIDE RECORDS SUMMARY | 2024-10-15 05:31 | XMS_ITS | Referral Summary ---
Author Organization [facility] [address] Address [address] [place] [address] Care Team Providers Care Software Verification Engineer Name Role Phone Ginny Leo NP Primary Care Provider [phone] Tk Wyman MD Unavailable Encounters Date Type Department Care Team Description 08/11/2024 Anticoagulation Visit [facility] Cardiology [address] [place] [address] Gemini Moeller, NIKKI History of prosthetic heart valve (Primary Dx); Chronic anticoagulation from Last 3 Months Allergies Active Allergy Reactions Criticality Noted Date Comments Oxycodone-Acetaminophen Headache High 01/07/2018 Hydrocodone-Acetaminophen Headache High 01/07/2018 Medications cholecalcifero l (VITAMIN D-3) 2,000 unit tablet 1 tablet (2,000 Units total) daily Take 1 tablet every other day Active guaiFENesin ER (MUCINEX) 600 mg 12 hr tablet Take 1,200 mg by mouth daily Active multivitamin (MULTIPLE VITAMINS ORAL) Take by mouth A ctive amoxicillin (AMOXIL) 500 mg tablet/capsule Take 4 caps (2000 mg) 1 hour prior to procedure. 4 tablet/caps ule 10/31/19 22 Active Additional Information Patient not taking.Reported on 10/14/2023 ivermectin 1 % cream Apply topically daily Active nortriptyline (PAMELOR) 10 mg capsule Take 2 hours before bedtime 10 mg for 7 evenings Then 20 mg at bedtime until follow up visit 60 capsule 1 11/27/19 24 Active Additional Information Patient not taking.Reported on 12/01/2023 aspirin 81 mg enteric coated tablet Take 1 tablet (81 mg total) by mouth daily 90 tablet 6 12/09/19 24 Active buPROPion SR (ZYBAN) 150 mg 12 hr tablet Take 1 tablet (150 mg total) by mouth 2 (two) times a day 60 tablet 11 12/09/19 24 025 Active rosuvastatin (CRESTOR) 40 mg tablet Take 1 tablet (40 mg total) by mouth daily 90 tablet 11 12/09/19 24 Active ALPRAZolam (XANAX) 0.5 mg tablet Take 1 tablet before leaving your house. Take a 2nd tablet on arrival to office. 2 tablet 01/05/20 24 Active warfarin (COUMADIN) 1 mg tabletIndicati ons:History of prosthetic heart valve TAKE 2 TABLETS BY MOUTH ONCE A WEEK WITH 12 MG TABLETS 24 tablet 01/06/20 24 Active enoxaparin (LOVENOX) 100 mg/mL syringe Inject 0.7 mL (70 mg total) under the skin every 12 (twelve) hours 10 mL 1 06/20/20 24 Active warfarin (COUMADIN) 6 mg tabletIndicati ons:Mitral valve disease TAKE 2 TABLETS BY MOUTH ONCE DAILY OTHER THAN THURSDAY 60 tablet 10/06/19 25 Active warfarin (COUMADIN) 6 mg tabletIndicati ons:Mitral valve disease TAKE 2 TABLETS BY MOUTH ONCE DAILY OTHER THAN THURSDAY. 60 tablet 09/15/19 25 025 Discontinued Active Problems Problem Noted Date Diagnosed Date Varicose veins of both lower extremities with pa in 10/30/2023 Assessment & Plan (11/27/2023 9:39 AM CDT): Bilateral lower extremity CEAP C3 disease symptomatic varicosities despite compression therapy. Risks benefits alternatives to left GSV ablation and stab phlebectomies discussed, risks including bleeding, infection, DVT/PE, thermal injury, need further surgery. She wished to proceed. We will start with the left leg. Assessment & Plan (10/30/2023 1:53 PM MARKET RISK SPECIALIST): Symptomatic varicosities left lower extremity despite years of compression therapy. Left lower extremity reflux service sprinkler helper ordered for further evaluation, pending this she may benefit from a GSV ablation stab phlebectomies. We discussed for her spider reticular veins I would not recommend any type of sclerotherapy unless they are becoming symptomatic. Worsening headaches 11/06/2017 Assessment & Plan (11/06/2017 8:53 AM MARKET RISK SPECIALIST): She has recurrent headaches which are severe enough to wake her up from her sleep. She does have relief with NSAIDs; however advised to avoid these due to increase risk of bleeding due to warfarin. She does drink a lot of caffeine (3 red bulls per day) Will check Head CT Advised to decrease caffeine intake and increase water intake. Pulmonary nodule 11/06/2017 Assessment & Plan (11/06/2017 8:54 AM MARKET RISK SPECIALIST): She has history of pulmonary nodule noted on a CT scan in 2011; recent chest x ray unable to visualize nodule. Will check chest CT BMI 32.0-32.9,adult 11/06/2017 Assessment & Plan (11/06/2017 8:57 AM MARKET RISK SPECIALIST): Weight loss encouraged. History of noncompliance wit h medical treatment, presenting hazards to health 08/12/2017 Dyspnea on exertion 08/12/2017 History of mitral valve replacement with mechani alexander valve 02/20/2017 Assessment & Plan (09/02/2023 3:27 PM MARKET RISK SPECIALIST): Established with Cardiology but would like to establish with Cardiology in our office for location purposes. Referral placed. Assessment & Plan (11/06/2017 8:56 AM MARKET RISK SPECIALIST): Followed by Cardiology; suggested she have FMLA forms completed via her employer to have INR checked consistently. She says the last time her INR was checked was last month and this was in range, however she reports blood in the stool occasionally; will check CBC. Exposure to silica 02/20/2017 Palpitations 02/20/2017 Tobacco dependence syndrome 11/07/2015 Overview (12/05/2016): Tobacco dependence History of prosthetic heart valve 11/07/2015 Overview (12/05/2016): History of prosthetic heart valve Venous varices 11/07/2015 Overview (12/05/2016): Varicose veins Chronic anticoagulation 11/07/2015 Overview (12/05/2016): Chronic anticoagulation Tobacco abuse 11/07/2015 Overview (12/05/2016): Encounter for smoking cessation counseling Insomnia 11/07/2015 Overview (12/05/2016): Insomnia, unspecified type Intractable migraine 03/14/2014 Overview (12/05/2016): MGRN UNSP W NTRC MGR STD Mitral valve disease 01/14/2014 Overview (12/05/2016): MITRAL VALVE DISORDER Osteoarthritis of hip 08/11/2012 Overview (12/04/2016): Osteoarthritis of right hip History of gestational diabetes mellitus (GDM) 1 10/05/2011 Overview (12/05/2016): History of gestational diabetes History of anticoagulant therapy 08/04/2012 Overview (12/05/2016): LONG-TERM USE ANTICOAGUL Osteoarthritis of knee 08/04/2012 Overview (12/06/2016): Osteoarthritis, knee Hyperlipidemia 02/02/2012 Assessment & Plan (11/27/2023 9:39 AM CDT): Stable continue Crestor 5 mg. Assessment & Plan (10/14/2023 1:24 PM MARKET RISK SPECIALIST): Uncontrolled, patient has not tolerated statins in the past. LDL 197. Patient agreeable to starting low dose of Crestor to see if tolerated better at the lowest dose and gradually increase if needed. Dietary changes encouraged also. Recheck in 3 months. Assessment & Plan (09/02/2023 3:20 PM MARKET RISK SPECIALIST): Updated labs ordered. Vestibular vertigo 04/10/2011 Migraine with aura 06/17/2010 Immunizations Name Administration Dates Next Due Influenza, Split 08/09/2012 Influenza, Trivalent, Preser vative Free, Intramuscular 06/17/2010 Influenza, Unspecified 09/02/2023(Deferr ed: Patient Refused),08/31/2022(Deferred: Patient Refused),05/02/2017 Pneumococcal Polysaccharide PPV23 02/13/2006,08/2005 Social History Tobacco Use Types Packs/Day Years Used Date Smoking Tobacco: Every Day Cigarettes 1 42 Passive Smoke Exposure: Current Smokeless Tobacco: Never Tobacco Cessation:Ready to Q uit: Not Asked; Counseling Given: Not Answered Comments:1ppd Alcohol Use Standard Drinks/Week Comments Yes 0 (1 standard drink = 0.6 oz pur e alcohol) rarely PHQ-2 Answer Date Recorded PHQ-2 Total Score (If total score is 3 or more points, staff should administer the PHQ-9) 0 12/01/2023 Comments No Sex and Gender Information Value Date Recorded Sex Assigned at Not on file Legal Sex Female 12:31 AM MARKET RISK SPECIALIST Gender Identity Female 11/25/2023 7:08 PM CDT Sexual Orientation Straight 11/25/2023 7: 08 PM CDT Last Filed Vital Signs Vital Sign Reading Time Taken Comments Blood Pressure 110/80 12/09/2023 2:07 PM CDT Pulse 73 12/09/2023 2:07 PM CDT Temperature 36.9 C (98.5 F) 12/01/2023 2:25 PM CDT Respiratory Rate 18 10/14/2023 12:37 PM MARKET RISK SPECIALIST Oxygen Saturation 97% 12/09/2023 2:07 PM CDT Inhaled Oxygen Concentration - - Weight 72.1 kg (159 lb) 12/09/2023 2:07 PM CDT Height 160 cm (5' 3 ) 12/09/2023 2:07 PM CDT Body Mass Index 28.17 12/09/2023 2:07 PM CDT Plan of Treatment Not on file Procedures Procedure Name Priority Date/Time Associated Diagnosis Comments PROTIME-INR Routine 08/11/2024 STOOL DNA COLOGUARD Routine 01/07/2018 Colon cancer screening from Last 3 Months or Most Recently Relevant to Health Maintenance Results * (ABNORMAL) Protime-INR (08/11/2024) INR 3.10(A) 0.90 - 1.10 EXTERNAL LAB Blood Historical Provider LAB BLOOD ORDERABLES Juju carney Result EXTERNAL LAB * Stool DNA - Cologuard (01/07/2018) Stool Renata Whalen MD LAB BODY FLUIDS AND STOOLS O RDERABLES Final Result [facility] from Last 3 Months or Most Recently Relevant to Health Maintenance [place] [address] Care Teams Software Verification Engineer Relationship Specialty Start Date End Date Ginny Leo NP [address] [facility] [address] [place] [address] PCP - General Family Medicine 09/02/23 Tk Wyman MD [address] [place] [address] Consulting Physician Cardiology 09/02/23
--- OUTSIDE RECORDS SUMMARY | 2024-10-15 05:31 | XMS_ITS | Clinical Summary ---
Author Organization [facility] [address] Address [address] [place] [address] Care Team Providers Care Psychiatric Aides Teacher Name Role Phone Ginny Leo NP Primary Care Provider kT Wyman MD Unavailable Allergies Active Allergy Reactions Criticality Noted Date [...] leg. Assessment & Plan (10/30/2023 1:53 PM ASSISTANT ATTORNEY GENERAL): Symptomatic varicosities left lower extremity despite years of compression therapy. Left lower extremity reflux salesperson floor coverings ordered for further evaluation, pending this she may benefit from a GSV ablation stab phlebectomies. We discussed for her spider reticular veins I would not recommend any type of sclerotherapy unless they are becoming symptomatic. Worsening headaches 11/06/2017 Assessment & Plan (11/06/2017 8:53 AM ASSISTANT ATTORNEY GENERAL): She has recurrent headaches which are severe [...] 11/06/2017 Assessment & Plan (11/06/2017 8:54 AM ASSISTANT ATTORNEY GENERAL): She has history of pulmonary nodule noted on a CT scan in 2011; recent chest x ray unable to visualize nodule. Will check chest CT BMI 32.0-32.9,adult 11/06/2017 Assessment & Plan (11/06/2017 8:57 AM ASSISTANT ATTORNEY GENERAL): Weight loss encouraged. History of noncompliance wit h medical treatment, presenting hazards to health 08/12/2017 Dyspnea on exertion 08/12/2017 History of mitral valve replacement with mechani alexander valve 02/20/2017 Assessment & Plan (09/02/2023 3:27 PM ASSISTANT ATTORNEY GENERAL): Established with Cardiology but would like to establish with Cardiology in our office for location purposes. Referral placed. Assessment & Plan (11/06/2017 8:56 AM ASSISTANT ATTORNEY GENERAL): Followed by Cardiology; suggested she have FMLA [...] mg. Assessment & Plan (10/14/2023 1:24 PM ASSISTANT ATTORNEY GENERAL): Uncontrolled, patient has not tolerated statins in the past. LDL 197. Patient agreeable to starting low dose of Crestor to see if tolerated better at the lowest dose and gradually increase if needed. Dietary changes encouraged also. Recheck in 3 months. Assessment & Plan (09/02/2023 3:20 PM ASSISTANT ATTORNEY GENERAL): Updated labs ordered. Vestibular vertigo 04/10/2011 Migraine with aura 06/17/2010 Encounters Date Type Department Care Team Description 08/11/2024 Anticoagulation Visit [facility] Card[facility] [address] [place] [address] Gemini Moeller, RN History of prosthetic heart valve (Primary Dx); Chronic anticoagulation from Last 3 Months Immunizations Name Administration Dates Next Due Influenza, Split 08/09/2012 Influenza, Trivalent, Preser vative Free, Intramuscular 06/17/2010 Influenza, Unspecified 09/02/2023(Deferr ed: Patient Refused),08/31/2022(Deferred: Patient Refused),05/02/2017 Pneumococcal Polysaccharide PPV23 02/13/2006,08/2005 Surgical History Surgery Date Site/Laterality Comments OTHER SURGICAL HISTORY 2005 rheumatic heart disease: mitral valve replacement HYSTERECTOMY Hysterectomy SECTION 1987 section HYSTERECTOMY 1996 Hysterectomy OTHER SURGICAL HISTORY 2010 torn rotator cuff: right shoulder surgical repair TOTAL ABDOMINAL HYSTERECTOMY W/ BILATERAL SALPINGOOPHORECTOMY 2007 Hysterectomy, total abdominal, BSO OTHER SURGICAL HISTORY 2005 Mitral valve disease: M[facility] - [facility] valve SHOULDER SURGERY 2010 Right Shoulder Surgery OTHER SURGICAL HISTORY Surgery for carpal tunnel (bilateral): Surgery for Carpal Tunnel TOTAL ABDOMINAL HYSTERECTOMY W/ BILATERAL SALPINGOOPHORECTOMY Hysterectomy, FACUNDO, with BSO Medical History Medical History Date Comments Hx Other Medical rheumatic heart disease Gestational diabetes mellitus (GDM) Diabetes gestational Hx Other Medical 5.9x10x5.3cm ov riaz mass Hx Other Medical torn rotator cu ff Hx Other Medical Mitral valve di sease Depression Depression Endometritis endometriosis Hx Other Medical Headache, migra ine Hyperlipidemia Hyperlipidemia Arthritis Arthritis Hx Other Medical TIA Hx Other Medical Surgery for car pal tunnel (bilateral) Hx Other Medical Migraines Hx Other Medical pulmonary nodul es History of mitral valve repl acement with mechanical valve 02/20/2017 Exposure to silica 02/20/2017 Palpitations 02/20/2017 Family History Medical History Relation Name Comments Coronary artery disease Father Chris nary artery disease; /Coronary Artery Bypass Graft; Leukemia Father Cancer -leukemi a; Breast cancer Father's Sister Cancer -janet ast; Coronary artery disease Other 1 Fami ly history of Coronary artery disease; Stroke Other 2 Family history of Stroke; Other Other 3 Family history of Aneurysm; Hyperlipidemia Other 4 Family histor y of Hyperlipidemia; Stroke Paternal Grandmother Stroke; Relation Name Status Comments Father Alive Father's Sister Other 1 Other 2 Other 3 Other 4 Paternal Grandmother Social History Tobacco Use Types Packs/Day Years [...] on file Legal Sex Female 12:31 AM ASSISTANT ATTORNEY GENERAL Gender Identity Female 11/25/2023 7:08 PM CDT Sexual Orientation Straight 11/25/2023 7: 08 PM CDT Obstetrics History Last Filed Vital Signs Vital Sign Reading Time Taken Comments Blood Pressure 110/80 12/09/2023 2:07 PM CDT Pulse 73 12/09/2023 2:07 PM CDT Temperature 36.9 C (98.5 F) 12/01/2023 2:25 PM CDT Respiratory Rate 18 10/14/2023 12:37 PM ASSISTANT ATTORNEY GENERAL Oxygen Saturation 97% 12/09/2023 2:07 PM CDT Inhaled Oxygen Concentration - - Weight 72.1 kg (159 lb) 12/09/2023 2:07 PM CDT Height 160 cm (5' 3 ) 12/09/2023 2:07 PM CDT Body Mass Index 28.17 12/09/2023 2:07 PM CDT Plan of Treatment Health Maintenance Due Date Last Done Comments Colon Cancer Screening-CT Colonography 1966 Hepatitis C Screening 1966 Hepatitis B Screening 1984 Regular Well Visit/Exam 18-64 1984 Pneumococcal vaccine <65 (2 of 2 - PCV) 02/13/2007 02/13/2006, 08/31/2005 Lung Cancer Screening 2016 Zoster Vaccine (1 of 2) 2016 Influenza Vaccine (#1) 2024 7, 08/09/2012, 06/17/2010 Depression Screening 11/30/2024 12/01/2023, 10/14/2023, 09/02/2023, Additional history exists Breast Cancer Screening-Mammogram Discontinued 016, 06/19/2011 Colon Cancer Screening-FIT Discontinued 01/07/2018 Colon Cancer Screening-DNA Stool Discontinued 05/06/20 19, 01/07/2018 DTaP/Tdap/Td Vaccine Discontinued Procedures Procedure Name Priority Date/Time Associated Diagnosis Comments PROTIME-INR Routine 08/11/2024 STOOL DNA COLOGUARD Routine 01/07/2018 Colon cancer screening from Last 3 Months or Most Recently Relevant to Health Maintenance Results * (ABNORMAL) Protime-INR (08/11/2024) INR 3.10(A) 0.90 - 1.10 EXTERNAL LAB Blood us Historical Provider LAB BLOOD ORDERABLES Juju l Result EXTERNAL LAB * Stool DNA - Cologuard (01/07/2018) Stool Renata Whalen MD LAB BODY FLUIDS AND STOOLS O RDERABLES Final Result [facility] from Last 3 Months or Most Recently Relevant to Health Maintenance Insurance [place] [employer] [facility] BLUE ACCESS CHOICE [place] Care Teams Psychiatric Aides Teacher Relationship Specialty Start Date End Date Ginny Leo NP [address] [address] [place] [address] PCP - General Family Medicine 09/02/23 Tk Wyman MD [address] [place], [place] [id number] Consulting Physician Cardiology 09/02/23
--- OUTSIDE RECORDS SUMMARY | 2024-10-15 05:31 | XMS_ITS | Referral Summary ---
Author Organization [facility] Address [address] [place] [address] Care Team Providers Care Psych Np Name Role Phone Unavailable Primary Care Provider Unavailabl e Source Comments [facility],non-owned Affiliates and Associated Physician Practices is amultiple site organization consisting of ambulatory clinics and hospital sitesin [place], [place] and [place]. This disclosure is being madepursuant to the Care Everywhere program and may not contain all information available regarding this patient. Last updated 18.[facility] Social History Tobacco Use Types Packs/Day Years Used Date Smoking Tobacco: Never Assessed Sex and Gender Information Value Date Recorded Sex Assigned at Not on file Gender Identity Not on file Sexual Orientation Not on file Plan of Treatment Not on file Procedures [...] if suspicious findings are present clinically. An [employer] certified facility. [facility] utilize [employer] as a reminder system to notify patients of their next recommended mammograms. Edited by Odalys Whitney on 11/22/2015 2:06 PM Abimbola Milan MD MAMMO ORDERABLES from Last 3 Months or Most Recently Relevant to Health Maintenance
--- NOTE | 2024-10-15 05:32 | ED.CHESTPAIN ---
HPI - Chest Pain General Chief Complaint: Chest Pain Stated Complaint: CHEST PAIN W/ CARDIAC HISTORY Time Seen by Provider: 10/15/24 05:12 History of Present Illness HPI narrative: Patient was at work around 330 this morning she started feeling pain to her left jaw and arm, and then chest pressure to her chest. Severe pain, feels like when she had a heart attack 3 years ago; she is supposed to be on warfarin for aortic valve but she has missed multiple doses. Related Data Home Medications ?Medication ?Instructions ?Recorded ?Confirmed ?Last Taken ?Type warfarin 1 mg tablet 1 mg PO .COMPLEX 10/18/20 10/19/23 Unknown History Black Elderberry 1 tbspn PO BID 10/19/23 10/19/23 Unknown History Black Seed Oil 2 tbsp PO BID 10/19/23 10/19/23 Unknown History Chlorophyll 1 tbsp PO DAILY 10/19/23 10/19/23 Unknown History Curcumin 475 mg PO DAILY 10/19/23 10/19/23 Unknown History Ivermectin 1.87% See Rx Instructions .Route .COMPLEX 10/19/23 10/19/23 Unknown History Mullein 3 tab-cap PO DAILY 10/19/23 10/19/23 Unknown History ascorbic acid (vitamin C) 1,000 mg 4 g PO DAILY 10/19/23 10/19/23 Unknown History tablet capsicum (cayenne) 500 mg capsule 1,000 mg PO DAILY 10/19/23 10/19/23 Unknown History magnesium glycinate 1,400 mg PO HS 10/19/23 10/19/23 Unknown History oregano oil 1 tsp PO DAILY 10/19/23 10/19/23 Unknown History rosuvastatin 5 mg tablet 5 mg PO DAILY 10/19/23 10/19/23 Unknown History turmeric root extract 500 mg 500 mg PO BID 10/19/23 10/19/23 Unknown History capsule vitamin D3-vitamin K2 1 cap PO DAILY 10/19/23 10/19/23 Unknown History zinc sulfate 1 tsp PO DAILY 10/19/23 10/19/23 Unknown History Allergies Allergy/AdvReac Type Severity Reaction Status Date / Time acetaminophen (From Vicodin) AdvReac Intermediate Headache Verified 10/15/24 05:19 codeine AdvReac Intermediate Headache Verified 10/15/24 05:19 hydrocodone (From Vicodin) AdvReac Intermediate Headache Verified 10/15/24 05:19 Review of Systems Review of Systems: All systems reviewed & are unremarkable except as noted in HPI and below [facility] Past Medical History Medical History Benign essential HTN 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 Lung nodule Lung nodule seen on imaging study Mitral valve regurgitation Tobacco abuse Surgical History Surgical History Bioprosthetic mitral valve replacement, current hospitalization Hx of hysterectomy Family History Family History Father Hypertension Family history of malignant neoplasm, Onset Age: 75 Social History Social History Social History: Smoking packs per day: 1 Smoking cigarettes per day: 20.0 Years smoked: 43 Smoking pack-years: 43.00 Smoking status: Current every day smoker Tobacco type: cigarettes Second hand tobacco smoke exposure: Yes Alcohol intake: current Substance use: never Substance use type: does not use Living arrangements: with family Occupation/Education: occupation Gender identity (if verbalized by the patient): Female Sexual Orientation (if Verbalized by the Patient): Straight or Heterosexual Spiritual care concerns: No Exam Narrative: EXAMINATION OF ORGAN SYSTEMS/BODY AREAS: Constitutional: Vital signs per nursing GENERAL: Appears quite uncomfortable HEAD: Normal with no signs of head trauma. EYES: EOMI, conjunctiva normal ENT: Hearing grossly intact LUNGS: Nonlabored breathing. Clear to auscultation bilaterally HEART: [Regular rate and rhythm] ABD: [Soft], [nontender to palpation] EXT: Normal range of motion SKIN: [No rashes or lesions.] NEURO: [Alert and oriented x 3. No gross focal sensory or strength deficits.] PSYCH: Normal affect Course Vital Signs Vital signs: Vital Signs Temperature 98.0 F 10/15/24 05:12 Pulse Rate 77 10/15/24 05:12 Respiratory Rate 12 10/15/24 05:12 Blood Pressure 105/62 10/15/24 05:12 Pulse Oximetry 100 10/15/24 05:12 Oxygen Delivery Room Air 10/15/24 05:12 Temperature 98.0 F 10/15/24 05:12 Pulse Rate 77 10/15/24 05:12 Respiratory Rate 12 10/15/24 05:12 Blood Pressure 105/62 10/15/24 05:12 Pulse Oximetry 97 10/15/24 05:20 Oxygen Delivery Room Air 10/15/24 05:23 MDM - Chest Pain MDM Narrative Medical decision making narrative: Patient presents here with chest pain, started off with left jaw/neck pain then became severe chest pressure, feels like her last heart attack. She is supposed to be on warfarin for her heart valve but intermittently takes it. EKG on my independent interpretation does show ST elevations in inferior leads, and I did compare this to her last EKG from 3 years ago and this does appear new. Given her symptoms I am highly concerned for STEMI, have discussed this with motion picture camera operator, he would like her to have full dose heparin and drip, 600 mg Plavix, and full-dose aspirin at this time, and they will be going to laborer. Discussed with patient and partner at bedside the plan. Lab Data 10/15/24 05:21 10/15/24 05:21 Labs: Lab Results 10/15/24 Range/Units 05:21 WBC 5.7 (4.5-10.0) K/mm3 RBC 4.14 L (4.2-5.4) M/mm3 Hgb 13.5 (12.0-15.0) g/dL Hct 39.9 (37.0-47.0) % MCV 96.4 (80-100) fl MCH 32.6 (26-34) pg MCHC 33.8 (32-36) g/dl RDW 13.1 (11.5-14.5) % Plt Count 310 (150-375) k/mm3 MPV 10.5 H (7.4-10.4) fl Immature Gran % (Auto) 0.2 (0-0.5) % Neut % (Auto) 41.0 L (45.5-73.1) % Lymph % (Auto) 48.3 H (18.3-44.2) % Taliaferro % (Auto) 7.4 (2.6-8.5) % Eos % (Auto) 2.6 (0-4.4) % Baso % (Auto) 0.5 (0.2-1.2) % Lymph # (Auto) 2.75 (0.9-3.2) K/mm3 Taliaferro # (Auto) 0.4 (0.1-0.6) K/mm3 Eos # (Auto) 0.2 (0-0.3) K/mm3 Baso # (Auto) 0.0 (0.0-0.1) K/mm3 Abs Immat Gran (auto) 0.01 (0.00-0.031) K/mm3 Absolute Neuts (auto) 2.3 (1.3-6.7) K/mm3 Absolute Nucleated RBC 0.000 (0.0-0.012) K/mm3 Nucleated RBC % 0.0 (0.0-0.2) % PT Pending INR Pending APTT Pending Sodium Pending Potassium Pending Chloride Pending Carbon Dioxide Pending Anion Gap Pending BUN Pending Creatinine Pending Estim Creat Clear Calc Pending Estimated GFR Pending Glucose Pending Calcium Pending Total Bilirubin Pending AST Pending ALT Pending Alkaline Phosphatase Pending Troponin I Pending Total Protein Pending Albumin Pending Lipase Pending Critical Care Time Critical Care Time Critical Care Time: Yes Total Critical Care Time: 31 Discharge Plan Discharge Clinical Impression: ST elevation (STEMI) myocardial infarction Patient Disposition: Still a Patient Condition: Serious Patient Language: Khmer Prescriptions: No Action warfarin 6 mg tablet 12 mg PO .qod Qty: 30 0RF warfarin 1 mg tablet 1 mg PO .COMPLEX Rx Instructions: uses if increase in dosage is needed rosuvastatin 5 mg tablet 5 mg PO DAILY Patient Comments: will start after colonoscopy ascorbic acid (vitamin C) [Super C-1000] 1,000 mg Tablet 4 g PO DAILY capsicum (cayenne) 500 mg Capsule 1,000 mg PO DAILY turmeric root extract 500 mg Capsule 500 mg PO BID Black Elderberry 1 tbspn PO BID Black Seed Oil 2 tbsp PO BID Chlorophyll 1 tbsp PO DAILY Curcumin 475 mg PO DAILY Ivermectin 1.87% See Rx Instructions .ROUTE .COMPLEX Rx Instructions: as directed Mullein 3 tab-cap PO DAILY magnesium glycinate 1,400 mg PO HS oregano oil 1 tsp PO DAILY vitamin D3-vitamin K2 1 cap PO DAILY zinc sulfate 1 tsp PO DAILY Patient Comments: NOT TAKING TILL AFTER PROCEDURE Follow-up/Referrals: Felipa,Ginny Delgado APRN [Primary Care Provider] -
[2024-10-15 05:44] LABS: INR 3.3; Prothrombin Time 34.1 Seconds (11.1-14.7)
[2024-10-15] MEDS: HEPARIN SODIUM 5,000 UNITS/ML VIAL 3500 UNITS IV PUSH (05:50)
[2024-10-15] MEDS: CLOPIDOGREL BISULFATE 300 MG TABLET 600 MG PO (05:50)
[2024-10-15] MEDS: HEPARIN SOD/D5W 100 UNITS/ML 25,000 UNITS/250 ML BAG 7 UNITS IV CONT (05:52)
[2024-10-15 05:53] LABS: Alanine Aminotransferase 25 U/L (6-35); Albumin Level 4.6 g/dL (3.5-5.1); Alkaline Phosphatase 60 U/L (38-126); Anion Gap 12 mmol/L (4-12); Aspartate Amino Transferase 39 U/L (14-36); Bilirubin,Total 1.6 mg/dL (0.2-1.3); Blood Urea Nitrogen 21 mg/dL (7-17); Calcium 10.2 mg/dL (8.4-10.2); Carbon Dioxide 24 mmol/L (22-30); Chloride 104 mmol/L (98-107); Estimated CRCL calculation 57 ml/min; Estimated Glomerular Filt Rate > 60; Glucose 104 mg/dL (65-110); Lipase 95 U/L (23-300); Potassium 3.7 mmol/L (3.4-5.0); Sodium 140 mmol/L (137-145)
[2024-10-15 06:04] LABS: Troponin I < 0.012 ng/mL (0.000-0.034)
--- NOTE | 2024-10-15 06:24 | P.HP_ITS ---
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 She has continued to have persistent chest discomfort that is substernal in nature. Associated shortness of breath. 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 However there does not appear to be a exertional component and she has not noted any decrease in functional status secondary to cardiopulmonary limitations prior to the events leading up to today. No syncopal events. Denies any bleeding events while on warfarin for mechanical mitral valve. Review of Systems Review of Systems: All systems reviewed & are unremarkable except as noted in HPI and below PMFSH Past Medical History Medical History Benign essential HTN 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 prison current use of anticoagulant Lung nodule Lung nodule seen on imaging study Mitral valve regurgitation Tobacco abuse Surgical History Surgical History Bioprosthetic mitral valve replacement, current hospitalization Hx of hysterectomy Family History Family History Father Hypertension Family history of malignant neoplasm, Onset Age: 75 Social History Social History Social History: Smoking packs per day: 1 Smoking cigarettes per day: 20.0 Years smoked: 43 Smoking pack-years: 43.00 Smoking status: Current every day smoker Tobacco type: cigarettes Second hand tobacco smoke exposure: Yes Alcohol intake: current Substance use: never Substance use type: does not use Living arrangements: with family Occupation/Education: occupation Gender identity (if verbalized by the patient): Female Sexual Orientation (if Verbalized by the Patient): Straight or Heterosexual Spiritual care concerns: No Meds Home Medications and Allergies Home Medications ?Medication ?Instructions ?Recorded ?Confirmed ?Type warfarin 1 mg tablet 1 mg PO .COMPLEX 10/18/20 10/19/23 History warfarin 6 mg tablet 12 mg (2 x 6 mg) PO .qod #30 tabs 10/18/20 10/19/23 Rx Black Elderberry 1 tbspn PO BID 10/19/23 10/19/23 History Black Seed Oil 2 tbsp PO BID 10/19/23 10/19/23 History Chlorophyll 1 tbsp PO DAILY 10/19/23 10/19/23 History Curcumin 475 mg PO DAILY 10/19/23 10/19/23 History Ivermectin 1.87% See Rx Instructions .Route .COMPLEX 10/19/23 10/19/23 History Mullein 3 tab-cap PO DAILY 10/19/23 10/19/23 History ascorbic acid (vitamin C) 1,000 mg 4 g PO DAILY 10/19/23 10/19/23 History tablet capsicum (cayenne) 500 mg capsule 1,000 mg PO DAILY 10/19/23 10/19/23 History magnesium glycinate 1,400 mg PO HS 10/19/23 10/19/23 History oregano oil 1 tsp PO DAILY 10/19/23 10/19/23 History rosuvastatin 5 mg tablet 5 mg PO DAILY 10/19/23 10/19/23 History turmeric root extract 500 mg 500 mg PO BID 10/19/23 10/19/23 History capsule vitamin D3-vitamin K2 1 cap PO DAILY 10/19/23 10/19/23 History zinc sulfate 1 tsp PO DAILY 10/19/23 10/19/23 History Allergies Allergy/AdvReac Type Severity Reaction Status Date / Time acetaminophen (From Vicodin) AdvReac Intermediate Headache Verified 10/15/24 05:19 codeine AdvReac Intermediate Headache Verified 10/15/24 05:19 hydrocodone (From Vicodin) AdvReac Intermediate Headache Verified 10/15/24 05:19 Vital Signs Vital Signs - 24 hr 10/15/24 05:12 10/15/24 05:20 10/15/24 05:23 Temperature 36.7 C Pulse Rate 77 Respiratory Rate 12 Blood Pressure 105/62 Pulse Oximetry 100 97 Oxygen Delivery Room Air Room Air Room Air 10/15/24 06:00 Temperature Pulse Rate 78 Respiratory Rate 16 Blood Pressure 130/70 Pulse Oximetry 100 Oxygen Delivery Exam Const: General: uncomfortable HENMT: Mouth: Yes moist mucous membranes Eyes: EOM: EOMs intact bilaterally Neck: Neck: no JVD Resp: Effort & Inspection: normal respiratory effort Auscultation: clear to auscultation bilaterally Cardio: Rate: regular rate Rhythm: regular rhythm Other: S1 mechanical click GI: GI Palp: Yes Soft to palpation H&P: Results Labs Labs: Short CBC 10/15/24 Range/Units 05:21 WBC 5.7 (4.5-10.0) K/mm3 Hgb 13.5 (12.0-15.0) g/dL Hct 39.9 (37.0-47.0) % Plt Count 310 (150-375) k/mm3 BMP 10/15/24 05:21 Sodium 140 Potassium 3.7 Chloride 104 Carbon Dioxide 24 BUN 21 H Creatinine 0.93 Glucose 104 Calcium 10.2 Cardiac Enzymes 10/15/24 Range/Units 05:21 Troponin I < 0.012 (0.000-0.034) ng/mL Liver Function 10/15/24 Range/Units 05:21 Total Bilirubin 1.6 H (0.2-1.3) mg/dL AST 39 H (14-36) U/L ALT 25 (6-35) U/L Alkaline Phosphatase 60 (38-126) U/L Albumin 4.6 (3.5-5.1) g/dL Assessment and Plan Assessment and plan (1) ST elevation (STEMI) myocardial infarction: Code(s): I21.3 - ST elevation (STEMI) myocardial infarction of unspecified site Status: Acute Plan 59-year-old woman with 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
--- NOTE | 2024-10-15 06:28 | WPDMODSED ---
Moderate Sedation Note-Pt Data Patient Data Allergies Allergy/AdvReac Type Severity Reaction Status Date / Time acetaminophen (From Vicodin) AdvReac Intermediate Headache Verified 10/15/24 05:19 codeine AdvReac Intermediate Headache Verified 10/15/24 05:19 hydrocodone (From Vicodin) AdvReac Intermediate Headache Verified 10/15/24 05:19 Home Medications ?Medication ?Instructions ?Recorded ?Confirmed ?Type warfarin 1 mg tablet 1 mg PO .COMPLEX 10/18/20 10/19/23 History warfarin 6 mg tablet 12 mg (2 x 6 mg) PO .qod #30 tabs 10/18/20 10/19/23 Rx Black Elderberry 1 tbspn PO BID 10/19/23 10/19/23 History Black Seed Oil 2 tbsp PO BID 10/19/23 10/19/23 History Chlorophyll 1 tbsp PO DAILY 10/19/23 10/19/23 History Curcumin 475 mg PO DAILY 10/19/23 10/19/23 History Ivermectin 1.87% See Rx Instructions .Route .COMPLEX 10/19/23 10/19/23 History [place]lein 3 tab-cap PO DAILY 10/19/23 10/19/23 History ascorbic acid (vitamin C) 1,000 mg 4 g PO DAILY 10/19/23 10/19/23 History tablet capsicum (cayenne) 500 mg capsule 1,000 mg PO DAILY 10/19/23 10/19/23 History magnesium glycinate 1,400 mg PO HS 10/19/23 10/19/23 History oregano oil 1 tsp PO DAILY 10/19/23 10/19/23 History rosuvastatin 5 mg tablet 5 mg PO DAILY 10/19/23 10/19/23 History turmeric root extract 500 mg 500 mg PO BID 10/19/23 10/19/23 History capsule vitamin D3-vitamin K2 1 cap PO DAILY 10/19/23 10/19/23 History zinc sulfate 1 tsp PO DAILY 10/19/23 10/19/23 History Current Medications: Active Medications Heparin Sodium (Porcine) (Heparin Sodium 5,000 Units/Ml Vial) 4,000 units IV PUSH PRN PRN PRN Reason: aPTT less than 55 seconds Heparin Sodium (Porcine) (Heparin Sodium 5,000 Units/Ml Vial) 2,500 units IV PUSH PRN PRN PRN Reason: aPTT 55 - 70 seconds Heparin Sodium/Dextrose (Heparin Sodium/D5w 100 Units/Ml) 25,000 units in 250 mls @ 7 mls/hr IV CONT .Q24H DIANA; Protocol Last Admin: 10/15/24 05:52 Dose: 700 units/hr, 7 mls/hr Sedation/Anesthesia: No previous sedation/anesthesia problems (including family history). 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 current use of anticoagulant Lung nodule Lung nodule seen on imaging study Mitral valve regurgitation Tobacco abuse Surgical History Surgical History Bioprosthetic mitral valve replacement, current hospitalization Hx of hysterectomy Family History Family History Father Hypertension Family history of malignant neoplasm, Onset Age: 75 Social History Social History Social History: Smoking packs per day: 1 Smoking cigarettes per day: 20.0 Years smoked: 43 Smoking pack-years: 43.00 Smoking status: Current every day smoker Tobacco type: cigarettes Second hand tobacco smoke exposure: Yes Alcohol intake: current Substance use: never Substance use type: does not use Living arrangements: with family Occupation/Education: occupation Gender identity (if verbalized by the patient): Female Sexual Orientation (if Verbalized by the Patient): Straight or Heterosexual Spiritual care concerns: No Mod Sed Physical Exam Physical Exam Pre Procedural Exam: Normal: Lungs, Heart Rate and Heart Rhythm Hours since solid foods: 6 Hours since liquid intake: 6 Mallampati Classification: class II Internal Medicine - PN: Obj Da Vital Signs Vital Signs: Vital Signs - 24 hr 10/15/24 05:12 10/15/24 05:20 10/15/24 05:23 Temperature 36.7 C Pulse Rate 77 Respiratory Rate 12 Blood Pressure 105/62 Pulse Oximetry 100 97 Oxygen Delivery Room Air Room Air Room Air 10/15/24 06:00 Temperature Pulse Rate 78 Respiratory Rate 16 Blood Pressure 130/70 Pulse Oximetry 100 Oxygen Delivery Meds/Results Medications: Active Medications Generic Name Dose Route Start Last Admin Trade Name Freq PRN Reason Stop Dose Admin Heparin Sodium (Porcine) 4,000 units 10/15/24 05:27 Heparin Sodium 5,000 Units/Ml Vial IV PUSH PRN PRN aPTT less than 55 seconds Heparin Sodium (Porcine) 2,500 units 10/15/24 05:27 Heparin Sodium 5,000 Units/Ml Vial IV PUSH PRN PRN aPTT 55 - 70 seconds Heparin Sodium/Dextrose 25,000 units in 250 mls @ 7 mls/hr 10/15/24 05:30 10/15/24 05:52 Heparin Sodium/D5w 100 Units/Ml IV CONT 700 units/hr .Q24H DIANA 7 mls/hr Administration Protocol 700 UNITS/HR Labs 10/15/24 05:21 10/15/24 05:21 Labs: Laboratory Results - last 24 hr 10/15/24 05:21 WBC 5.7 RBC 4.14 L Hgb 13.5 Hct 39.9 MCV 96.4 MCH 32.6 MCHC 33.8 RDW 13.1 Plt Count 310 MPV 10.5 H Immature Gran % (Auto) 0.2 Neut % (Auto) 41.0 L Lymph % (Auto) 48.3 H [place] % (Auto) 7.4 Eos % (Auto) 2.6 Baso % (Auto) 0.5 Lymph # (Auto) 2.75 [place] # (Auto) 0.4 Eos # (Auto) 0.2 Baso # (Auto) 0.0 Abs Immat Gran (auto) 0.01 Absolute Neuts (auto) 2.3 Absolute Nucleated RBC 0.000 Nucleated RBC % 0.0 PT 34.1 H INR 3.3 APTT 47.0 H Sodium 140 Potassium 3.7 Chloride 104 Carbon Dioxide 24 Anion Gap 12 BUN 21 H Creatinine 0.93 Estim Creat Clear Calc 57 Estimated GFR > 60 Glucose 104 Calcium 10.2 Total Bilirubin 1.6 H AST 39 H ALT 25 Alkaline Phosphatase 60 Troponin I < 0.012 Total Protein 8.0 Albumin 4.6 Lipase 95 ASA Classification/Sedation ASA Classification/Sedation ASA Class: IV Emergent: Yes Risks: Risks, benefits and alternatives explained and patient/family accepted plan for sedation. Patient re-evaluated immediately prior to sedation.
--- NOTE | 2024-10-15 06:53 | P.PCNCC_ITS ---
Cardiac Cath Procedure Note Date of procedure:: 10/15/24 Performing physician:: CATHETERIZATION LABORATORY REPORT Procedure Date: 10/15/2024 Referring Physician: Dr. Johnson Anesthesia: Versed and Fentanyl were ordered and given in my presence at 0632, procedure ended at 0651. Supervision of nurse, Collin Mayer monitored moderate sedation with 4mg Versed and 300mcg Fentanyl was provided for 19 minutes. 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 Risk of complications including but not limited to bleeding, infection, arrhythmia, stroke, worsening kidney function, blood loss, groin hematoma, limb loss, emergency coronary artery bypass grafting, and even were discussed with the patient and all questions were answered. The patient understood and wished to proceed. 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 Findings: LEFT HEART CATHETERIZATION FINDINGS: 1. Left main: The left main coronary artery is widely patent without any significant obstructive disease. 2. Left anterior descending: The LAD and the diagonal branches have mild luminal irregularities without any significant obstructive angiographic disease. 3. Left circumflex: The left circumflex artery and the main marginal branches are normal. 4. Right coronary artery: The RCA is a dominant vessel and is normal. 5. Left ventricle: A. End-diastolic pressure 13 mmHg. B. LV gram shows preserved left ventricular systolic function. C. Aortic valve pullback was not recorded. 6. Mitral valve leaflets are opening on fluoroscopy 7. Opening AO pressure 129/81 and closing AO pressure 90/48 Description of Procedure: Informed consent signed and placed in the chart. Patient transferred to phlebotomy lab assistant room. Prepped and draped in usual sterile fashion. 2% lidocaine in right groin area. Micropuncture needle used to access right common femoral artery with Seldinger technique under fluoroscopic guidance. J wire advanced, micropuncture cannula placed into the right common femoral artery and exchanged for 6 Romansh sheath. 5F JL4 diagnostic catheter engaged Left Main Coronary Artery. 6F JR4 guide diagnostic catheter engaged Right Coronary Artery. Multiple orthogonal angiogram obtained and reviewed. 5F Pigtail diagnostic catheter crossed aortic valve to obtain LVEDP, LV angiogram performed. Hemostasis was achieved by Angioseal. Assessment: No significant coronary artery disease Post Operative Condition: Stable No significant blood loss Disposition: ICU Plan: The patient will be monitored in the ICU post recovery and most likely be discharged later today. Continue warfarin tonight for patency of the mechanical mitral valve. Continue aggressive risk factor modification. Ranjith Price Interventional Cardiology
[2024-10-15] MEDS: SODIUM CHLORIDE 0.9% IV 1,000 ML 125 ML IV CONT (08:13)
--- NOTE | 2024-10-15 09:39 | P.DS_ITS ---
DS: Admitting Diagnosis Discharge Date October 15, 2024 Admitting Diagnosis Chest pain DS: Summary Hospital Course Reason for hospitalization: Chest pain, suspected STEMI Hospital Course: Was placed this is a 59-year-old woman with a history of valvular heart disease status post mitral valve replacement with mechanical prosthesis in 2005. She is followed in our office by Dr. Wyman. 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 She is known not to have any coronary artery disease by previous catheterization but he she also also known to have had a Cook coronary embolic infarction in 2020 when her INR was subtherapeutic. She was brought emergently to the electroplating laborer by Dr. PRICE and found to have no coronary artery stenosis. For the LAD which was the site of the embolic event in 2020 remained widely patent. The patient's troponin level was negative and her ECG did not show any evidence of acute current of injury. Today she is comfortable recovering from catheterization and does not have any ongoing complaints. Plan will be to discharge her at mid day after her bed rest catheterization is completed long as there is no difficulty with right groin puncture site. Time spent discussing smoking cessation with patient: more than 10 minutes Status at Discharge Functional status at discharge: independent ambulation Overall status at discharge: patient is back to baseline Time Spent with Patient Time attestation: Total time spent providing and/or coordinating discharge services: Time spent: Greater than 30 minutes Exam Const: General: comfortable and no acute distress Other: Pleasant white female appearing her stated age no distress HENMT: Mouth: Yes moist mucous membranes Eyes: Sclera: sclerae normal Neck: Neck: supple and no JVD Resp: Effort & Inspection: normal respiratory effort Auscultation: clear to auscultation bilaterally Cardio: Other: Normal crisp mitral valve closure sound note, no murmur GI: GI Palp: Yes Soft to palpation Auscultation: normal bowel sounds Skin: General skin exam: normal color Neuro: Other: Normal cognition, alert and oriented x3 Extrem: Other: No edema, good perfusion, no hematoma or bruit at the right groin puncture site DS: Data Data Completed and Pending Labs on day of discharge: Labs from last 24 hours 10/15/24 05:21 WBC 5.7 RBC 4.14 L Hgb 13.5 Hct 39.9 MCV 96.4 MCH 32.6 MCHC 33.8 RDW 13.1 Plt Count 310 MPV 10.5 H Immature Gran % (Auto) 0.2 Neut % (Auto) 41.0 L Lymph % (Auto) 48.3 H [place] % (Auto) 7.4 Eos % (Auto) 2.6 Baso % (Auto) 0.5 Lymph # (Auto) 2.75 [place] # (Auto) 0.4 Eos # (Auto) 0.2 Baso # (Auto) 0.0 Abs Immat Gran (auto) 0.01 Absolute Neuts (auto) 2.3 Absolute Nucleated RBC 0.000 Nucleated RBC % 0.0 PT 34.1 H INR 3.3 APTT 47.0 H Sodium 140 Potassium 3.7 Chloride 104 Carbon Dioxide 24 Anion Gap 12 BUN 21 H Creatinine 0.93 Estim Creat Clear Calc 57 Estimated GFR > 60 Glucose 104 Calcium 10.2 Total Bilirubin 1.6 H AST 39 H ALT 25 Alkaline Phosphatase 60 Troponin I < 0.012 Total Protein 8.0 Albumin 4.6 Lipase 95 Discharge Plan Discharge Attending physician on discharge: Ranjith Price Discharging Clinician: Ronaldo Clark Patient Disposition: Home, Self-Care Activity: other - see discharge instructions Diet: heart healthy Patient Language: Amharic Stand Alone Forms: General Discharge Instructions Follow-up/Referrals: Felipa,Ginny Delgado APRN [Primary Care Provider] - Discharge Medications: Continued warfarin 6 mg tablet 12 mg PO .qod Qty: 30 0RF warfarin 1 mg tablet 1 mg PO .COMPLEX Rx Instructions: uses if increase in dosage is needed rosuvastatin 5 mg tablet 5 mg PO DAILY Patient Comments: will start after colonoscopy ascorbic acid (vitamin C) [Super C-1000] 1,000 mg Tablet 4 g PO DAILY capsicum (cayenne) 500 mg Capsule 1,000 mg PO DAILY turmeric root extract 500 mg Capsule 500 mg PO BID Black Elderberry 1 tbspn PO BID Black Seed Oil 2 tbsp PO BID Chlorophyll 1 tbsp PO DAILY Curcumin 475 mg PO DAILY Ivermectin 1.87% See Rx Instructions .ROUTE .COMPLEX Rx Instructions: as directed [place] 3 tab-cap PO DAILY magnesium glycinate 1,400 mg PO HS oregano oil 1 tsp PO DAILY vitamin D3-vitamin K2 1 cap PO DAILY zinc sulfate 1 tsp PO DAILY Patient Comments: NOT TAKING TILL AFTER PROCEDURE Date of admission: 10/15/24 05:37 Primary Care Provider: Felipa,Ginny Delgado Admitting Provider: Ranjith Price Attending physician on admission: Ranjith Price Condition: Serious
--- OUTSIDE RECORDS SUMMARY | 2024-10-15 12:26 | XMS_ITS | Patient Health Summary ---
Author Organization [facility] Address [address] [place] [address] Care Team Providers Care Rubber Stamp Dies Inspector Name Role Phone Unavailable Primary Care Provider Unavailabl e Note from [facility],non-owned Affiliates and Associated Physician Practices is amultiple site organization consisting of ambulatory clinics and hospital sitesin [place], [place], [place] and [place]. This disclosure is being madepursuant to the Care Everywhere program and may not contain all information available regarding this patient. Last updated 18.[facility] Social History Tobacco Use Types Packs/Day Years [...] if suspicious findings are present clinically. An [employer] certified facility. [facility] Breast Centers utilize [employer] as a reminder system to notify patients of their next recommended mammograms. Edited by Odalys Whitney on 11/22/2015 2:06 PM Abimbola Milan MD MAMMO ORDERABLES
--- OUTSIDE RECORDS SUMMARY | 2024-10-15 12:26 | XMS_ITS | Clinical Summary ---
Author Organization [facility] Address [address] [place] [address] Care Team Providers Care Mold Capper Helper Name Role Phone Unavailable Primary Care Provider Unavailabl e Source Comments [facility],non-owned Affiliates and Associated Physician Practices is amultiple site organization consisting of ambulatory clinics and hospital sitesin [place], [place], [place] and [place]. This disclosure is being madepursuant to the Care Everywhere program and may not contain all information available regarding this patient. Last updated 18.[facility] Family History Medical History Relation Name Comments [...] if suspicious findings are present clinically. An [employer] certified facility. [facility] Breast Centers utilize Yashi as a reminder system to notify patients of their next recommended mammograms. Edited by Odalys Whitney on 11/22/2015 2:06 PM Abimbola Milan MD MAMMO ORDERABLES from Last 3 Months or Most Recently Relevant to Health Maintenance Blank Mckeon Personal/Family Self 1965 [facility] [address] [place] [address]
--- OUTSIDE RECORDS SUMMARY | 2024-10-15 12:27 | XMS_ITS | Referral Summary ---
Author Organization [facility] Address [address] [place] [address] Care Team Providers Care Flight Manager Name Role Phone Unavailable Primary Care Provider Unavailabl e Source Comments [facility],non-owned Affiliates and Associated Physician Practices is amultiple site organization consisting of ambulatory clinics and hospital sitesin [place], [place] and [place]. This disclosure is being madepursuant to the Care Everywhere program and may not contain all information available regarding this patient. Last updated 18.[facility] Social History Tobacco Use Types Packs/Day Years [...] if suspicious findings are present clinically. An [employer] certified facility. [facility] utilize [employer] as a reminder system to notify patients of their next recommended mammograms. Edited by Odalys Whitney on 11/22/2015 2:06 PM Abimbola Milan MD MAMMO ORDERABLES from Last 3 Months or Most Recently Relevant to Health Maintenance
--- OUTSIDE RECORDS SUMMARY | 2024-10-15 12:27 | XMS_ITS | Encounter Summary ---
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
--- OUTSIDE RECORDS SUMMARY | 2024-10-15 12:27 | XMS_ITS | Clinical Summary ---
Author Organization [facility] [address] Address [address] [place] [address] Care Team Providers Care Blindmaker Name Role Phone Ginny Leo NP Primary Care Provider [phone] Tk Wyman MD Unavailable Allergies Active Allergy Reactions [...] leg. 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 Left lower extremity reflux piercer ordered for further evaluation, pending this she may benefit from a GSV ablation stab phlebectomies. We discussed for her spider reticular veins I would not recommend any type of sclerotherapy unless they are becoming symptomatic. Worsening headaches 11/06/2017 Assessment & Plan (11/06/2017 8:53 AM SSN/SSBN ASSISTANT NAVIGATOR): She has recurrent headaches which are severe [...] 11/06/2017 Assessment & Plan (11/06/2017 8:54 AM SSN/SSBN ASSISTANT NAVIGATOR): She has history of pulmonary nodule noted on a CT scan in 2011; recent chest x ray unable to visualize nodule. Will check chest CT BMI 32.0-32.9,adult 11/06/2017 Assessment & Plan (11/06/2017 8:57 AM SSN/SSBN ASSISTANT NAVIGATOR): Weight loss encouraged. History of noncompliance wit h medical treatment, presenting hazards to health 08/12/2017 Dyspnea on exertion 08/12/2017 History of mitral valve replacement with mechani alexander valve 02/20/2017 Assessment & Plan (09/02/2023 3:27 PM SSN/SSBN ASSISTANT NAVIGATOR): Established with Cardiology but would like to establish with Cardiology in our office for location purposes. Referral placed. Assessment & Plan (11/06/2017 8:56 AM SSN/SSBN ASSISTANT NAVIGATOR): Followed by Cardiology; suggested she have FMLA [...] mg. Assessment & Plan (10/14/2023 1:24 PM SSN/SSBN ASSISTANT NAVIGATOR): Uncontrolled, patient has not tolerated statins in the past. LDL 197. Patient agreeable to starting low dose of Crestor to see if tolerated better at the lowest dose and gradually increase if needed. Dietary changes encouraged also. Recheck in 3 months. Assessment & Plan (09/02/2023 3:20 PM SSN/SSBN ASSISTANT NAVIGATOR): Updated labs ordered. Vestibular vertigo 04/10/2011 Migraine with aura 06/17/2010 Encounters Date Type Department Care Team Description 08/11/[address] [facility] Cardiology [address] [place] [address] Gemini Moeller, RN History of prosthetic heart [...] on file Legal Sex Female 12:31 AM SSN/SSBN ASSISTANT NAVIGATOR Gender Identity Female 11/25/2023 7:08 PM CDT Sexual Orientation Straight 11/25/2023 7: 08 PM CDT Obstetrics History Last Filed Vital Signs Vital Sign Reading Time Taken Comments Blood Pressure 110/80 12/09/2023 2:07 PM CDT Pulse 73 12/09/2023 2:07 PM CDT Temperature 36.9 C (98.5 F) 12/01/2023 2:25 PM CDT Respiratory Rate 18 10/14/2023 12:37 PM SSN/SSBN ASSISTANT NAVIGATOR Oxygen Saturation 97% 12/09/2023 2:07 PM CDT [...] Most Recently Relevant to Health Maintenance Insurance [employer] [facility] BLUE ACCESS CHOICE [place] Care Teams Blindmaker Relationship Specialty Start Date End Date Ginny Leo NP [address] [facility] [address] [place] [address] PCP - General Family Medicine 09/02/23 Tk Wyman MD [address] [place], [place] [id number] Consulting Physician Cardiology 09/02/23
--- OUTSIDE RECORDS SUMMARY | 2024-10-15 12:27 | XMS_ITS | Referral Summary ---
Author Organization [facility] [place] [address] Address [address] [place] [address] Care Team Providers Care Maintenance Director Name Role Phone Ginny Leo NP Primary Care Provider [phone] Tk Wyman MD Unavailable Encounters Date Type Department Care Team Description 08/11/2024 Anticoagulation Visit [facility] Cardiology [address] [place] [address] Gemini Moeller, NIKKI History of [...] leg. Assessment & Plan (10/30/2023 1:53 PM LOGISTICS MANAGER): Symptomatic varicosities left lower extremity despite years of compression therapy. Left lower extremity reflux duplicating machine servicer ordered for further evaluation, pending this she may benefit from a GSV ablation stab phlebectomies. We discussed for her spider reticular veins I would not recommend any type of sclerotherapy unless they are becoming symptomatic. Worsening headaches 11/06/2017 Assessment & Plan (11/06/2017 8:53 AM LOGISTICS MANAGER): She has recurrent headaches which are severe [...] 11/06/2017 Assessment & Plan (11/06/2017 8:54 AM LOGISTICS MANAGER): She has history of pulmonary nodule noted on a CT scan in 2011; recent chest x ray unable to visualize nodule. Will check chest CT BMI 32.0-32.9,adult 11/06/2017 Assessment & Plan (11/06/2017 8:57 AM LOGISTICS MANAGER): Weight loss encouraged. History of noncompliance wit h medical treatment, presenting hazards to health 08/12/2017 Dyspnea on exertion 08/12/2017 History of mitral valve replacement with mechani alexander valve 02/20/2017 Assessment & Plan (09/02/2023 3:27 PM LOGISTICS MANAGER): Established with Cardiology but would like to establish with Cardiology in our office for location purposes. Referral placed. Assessment & Plan (11/06/2017 8:56 AM LOGISTICS MANAGER): Followed by Cardiology; suggested she have FMLA [...] mg. Assessment & Plan (10/14/2023 1:24 PM LOGISTICS MANAGER): Uncontrolled, patient has not tolerated statins in the past. LDL 197. Patient agreeable to starting low dose of Crestor to see if tolerated better at the lowest dose and gradually increase if needed. Dietary changes encouraged also. Recheck in 3 months. Assessment & Plan (09/02/2023 3:20 PM LOGISTICS MANAGER): Updated labs ordered. Vestibular vertigo 04/10/2011 Migraine [...] on file Legal Sex Female 12:31 AM LOGISTICS MANAGER Gender Identity Female 11/25/2023 7:08 PM CDT Sexual Orientation Straight 11/25/2023 7: 08 PM CDT Last Filed Vital Signs Vital Sign Reading Time Taken Comments Blood Pressure 110/80 12/09/2023 2:07 PM CDT Pulse 73 12/09/2023 2:07 PM CDT Temperature 36.9 C (98.5 F) 12/01/2023 2:25 PM CDT Respiratory Rate 18 10/14/2023 12:37 PM LOGISTICS MANAGER Oxygen Saturation 97% 12/09/2023 2:07 PM CDT [...] AND STOOLS O RDERABLES Final Result [facility] from Last 3 Months or Most Recently Relevant to Health Maintenance Insurance [employer] [place] [employer] [place] [address] Care Teams Maintenance Director Relationship Specialty Start Date End Date Ginny Leo NP [address] [facility] [address] [place] [address] PCP - General Family Medicine 09/02/23 Tk Wyman MD [address] [place] [address] Consulting Physician Cardiology 09/02/23
== END 2024-10-15 12:29 | disposition home or self-care (01) ==
LOC: ANHED 05:39 → ANHCATHLAB 05:41 → ANHICU 09:38
PROVIDERS: Admitting Provider Internal Medicine; Emergency Provider Emergency Medicine; PCP Nurse Practitioner Family; Visit Provider Specialist
PROC: 4A023N7 Measurement of Cardiac Sampling and Pressure, Left Heart, Percutaneous Approach (ICD-10-PCS; CPT 93452; principal; 2024-10-15 05:55)
DX: R07.89 Other chest pain (principal); I25.10 Atherosclerotic heart disease of native coronary artery without angina pectoris; I25.2 Old myocardial infarction; F17.210 Nicotine dependence, cigarettes, uncomplicated; Z95.3 Presence of xenogenic heart valve; Z79.01 Long term (current) use of anticoagulants; Z79.899 Other long term (current) drug therapy
CPT/HCPCS: 36415; 80053; 83690; 84484; 85025; 85610; 85730; 93005; 93458; 96374; 99285; A9270; C1760; C1887; C1894; G0269; G0378; J1644; J2003; J2250; J2305; J3010; J7030; J7040

== ENCOUNTER 2024-10-28 13:03 | Outpatient (CLI) | payer BC, SELFPAY | END 2024-10-28 13:04 | disposition home or self-care (01) | PROVIDERS: PCP Nurse Practitioner Family; Visit Provider Nurse Practitioner Adult Health | DX: J32.0 Chronic maxillary sinusitis (principal) | CPT/HCPCS: 70450 ==

== ENCOUNTER 2025-03-14 12:11 | Outpatient (RCR) | payer BC, SELFPAY ==
[2024-12-19 13:09] LABS: INR 2.5; Prothrombin Time 27.7 Seconds (11.1-14.7)
[2025-01-20 12:38] LABS: INR 2.6; Prothrombin Time 28.4 Seconds (11.1-14.7)
[2025-03-14 13:04] LABS: INR 4.2; Prothrombin Time 39.4 Seconds (11.1-14.7)
== END 2025-03-19 23:59 | disposition home or self-care (01) ==
LOC: ANHLAB 12:11
PROVIDERS: PCP Nurse Practitioner Family; Visit Provider Internal Medicine Cardiovascular Disease
DX: Z51.81 Encounter for therapeutic drug level monitoring (principal); Z79.01 Long term (current) use of anticoagulants
CPT/HCPCS: 36415; 85610

== ENCOUNTER 2025-05-17 11:30 | Outpatient (RCR) | payer BC, SELFPAY ==
[2025-05-17 12:47] LABS: INR 4.7; Prothrombin Time 42.1 Seconds (11.1-14.7)
== END 2025-08-15 23:59 | disposition home or self-care (01) ==
LOC: ANHLAB 11:30
PROVIDERS: PCP Nurse Practitioner Family; Visit Provider Internal Medicine Cardiovascular Disease
DX: I05.9 Rheumatic mitral valve disease, unspecified (principal); Z95.2 Presence of prosthetic heart valve
CPT/HCPCS: 36415; 85610